=== PATIENT | male | born 1935 | race Caucasian/White ===

== ENCOUNTER → 2017-03-13 | Outpatient (CLI) | payer MEDICARE, BC ==
[~2017-03-13] MED LIST: ACTOS30 MG PO; ALLOPURINOL300 MG PO; B-121000 MCG PO; CEPHALEXIN500 M1 PO; DIOVAN HCT PO; DIOVAN/HCT 12.51 TAB PO; FLOMAX 0.40.4 MG/CAP PO; GLUCOTROL 5M5 MG/TAB PO; GLYBURIDE MICRON3 MG PO; HUMALOG100 U/ML SC; LEVEMIR FLEX100 U/ML SQ; NORCO 325 MG-51 TAB PO; NOVOLOGMIX70/30 SQ; TRICOR 48MG48 MG PO; UROCIT; UROCIT-K 5540 MG/TAB PO; ZAROXOLYN5 MG PO
== END ==
LOC: ZCOL.LAB 16:40
DX: E11.621 Type 2 diabetes mellitus with foot ulcer (principal)

== ENCOUNTER → 2017-03-18 | Outpatient (CLI) | payer MEDICARE, BC | LOC: COL.VAS 12:35 | DX: L97.219 Non-pressure chronic ulcer of right calf with unspecified severity (principal); M79.89 Other specified soft tissue disorders ==

== ENCOUNTER 2017-04-03 07:57 | Day surgery (SDC) | payer MEDICARE, BC ==
[~2017-04-03] VITALS: Ht 183 cm; Wt 135.9 kg
[2017-04-03 08:10] VITALS: BP 109/75; PULSE 88; TEMP 97.7
[2017-04-03 10:21] LABS: HEMATOCRIT 33.3 % (42.0-52.0); HEMOGLOBIN 10.7 g/dl (13.5-18.0); MEAN CELL VOLUME 105 fl (80.0-100.0); MEAN CORPUSCULAR HEMOGLOBIN 34 pg (27.0-31.0); MEAN CORPUSCULAR HGB CONC 32 g/dl (33.0-37.0); MEAN PLATELET VOLUME 9.3 fl (7.4-10.4); PLATELET COUNT 234 K/mm3 (130-400); RED BLOOD COUNT 3.17 M/mm3 (4.20-5.60); WHITE BLOOD COUNT 8.1 K/mm3 (4.8-10.8)
[2017-04-03 10:26] LABS: INR 1.4 (0.8-3.0); PROTHROMBIN TIME 16.3 SECONDS (9.7-12.8)
[2017-04-03 10:31] LABS: CREATININE, serum 3.01 mg/dL (0.66-1.25)
== END 2017-04-03 11:43 | disposition home or self-care (01) ==
LOC: COL.CAR 07:57
PROVIDERS: Radiology Diagnostic Radiology
DX: E11.621 Type 2 diabetes mellitus with foot ulcer (principal); Z53.09 Procedure and treatment not carried out because of other contraindication; L89.899 Pressure ulcer of other site, unspecified stage; I87.333 Chronic venous hypertension (idiopathic) with ulcer and inflammation of bilateral lower extremity; I25.10 Atherosclerotic heart disease of native coronary artery without angina pectoris; R79.89 Other specified abnormal findings of blood chemistry
CPT/HCPCS: J2250; J7030

== ENCOUNTER 2017-04-15 10:38 | Inpatient (IN) | payer MEDICARE, BC ==
[~2017-04-15] VITALS: Ht 182.9 cm; Wt 140.8 kg
[~2017-04-15 10:38] MED LIST changes: -ALLOPURINOL300 MG PO; +ZYLOPRIM 300MG300 MG PO
[2017-04-15 11:53] LABS: BASO % 0.3 % (0.0-2.0); EOS % 0.3 % (0-4.0); GRAN # 11.3 (1.4-6.5); LYMPH % 7.7 % (20.0-51.0); MEAN CELL VOLUME 106 fl (80.0-100.0); MEAN CORPUSCULAR HGB CONC 32 g/dl (33.0-37.0); MEAN PLATELET VOLUME 9.6 fl (7.4-10.4); MONO # 0.9 (0.1-0.6); MONO % 6.6 % (1.7-9.3); PLATELET COUNT 440 K/mm3 (130-400); RED BLOOD COUNT 2.86 M/mm3 (4.20-5.60); REDCELL DISTRIBUTION WIDTH-CV 14.8 % (11.5-14.5)
[2017-04-15 11:57] LABS: HEMATOCRIT 30.4 % (42.0-52.0); HEMOGLOBIN 9.7 g/dl (13.5-18.0); MEAN CORPUSCULAR HEMOGLOBIN 34 pg (27.0-31.0)
[2017-04-15 12:03] LABS: ALBUMIN 3.3 gm/dL (3.5-5.0); BILIRUBIN,TOTAL 0.8 mg/dL (0.0-1.0); CALCIUM 8.8 mg/dL (8.4-10.2); POTASSIUM 4.7 mmol/L (3.4-5.0); TOTAL PROTEIN 7.2 gm/dL (6.4-8.2)
[2017-04-15 12:06] LABS: CREATININE, serum 4.59 mg/dL (0.66-1.25)
[2017-04-15 12:20] LABS: C-REACTIVE PROTEIN 20.9 mg/dL (0.0-0.9)
[2017-04-15 12:25] LABS: ERYTHROCYTE SEDIMENTATION RATE > 140 mm/hr (0-30)
[2017-04-15] MEDS ORDERED: DIOVAN/HCT 12.51 TAB PO (12:31)
[2017-04-15 14:31] VITALS: BP 102/40; PULSE 89; TEMP 97.6
[2017-04-15 14:52] LABS: INR 1.5 (0.8-3.0); PROTHROMBIN TIME 17.4 SECONDS (9.7-12.8)
[2017-04-15 16:17] VITALS: BP 106/51; PULSE 81; TEMP 98.4
[2017-04-15 19:39] VITALS: BP 93/57; PULSE 93; TEMP 98.4
[2017-04-15 23:50] VITALS: BP 98/77; PULSE 97; TEMP 98
[2017-04-16] VITALS (7 sets, daily range): BP systolic 83–123; BP diastolic 30–96; PULSE 76–92; TEMP 97.4–98.7
[2017-04-16 00:43] LABS: FOLATE (FOLIC ACID) 4.3 ng/mL (7.0-31.4)
[2017-04-16 06:07] LABS: BASO % 0.3 % (0.0-2.0); EOS % 0.2 % (0-4.0); GRAN # 8.3 (1.4-6.5); GRAN % 81.9 % (42.2-75.2); LYMPH # 0.9 (1.2-3.4); LYMPH % 9.2 % (20.0-51.0); MEAN CELL VOLUME 105 fl (80.0-100.0); MEAN CORPUSCULAR HGB CONC 31 g/dl (33.0-37.0); MEAN PLATELET VOLUME 9.8 fl (7.4-10.4); MONO # 0.7 (0.1-0.6); MONO % 7.3 % (1.7-9.3); PLATELET COUNT 343 K/mm3 (130-400); RED BLOOD COUNT 2.48 M/mm3 (4.20-5.60); REDCELL DISTRIBUTION WIDTH-CV 14.6 % (11.5-14.5)
[2017-04-16 06:10] LABS: MEAN CORPUSCULAR HEMOGLOBIN 32 pg (27.0-31.0)
[2017-04-16 06:16] LABS: POTASSIUM 4.6 mmol/L (3.4-5.0)
[2017-04-16 06:25] LABS: CREATININE, serum 4.3 mg/dL (0.66-1.25)
[2017-04-16 11:59] LABS: RETIC # 0.06 M/mm3 (0.02-0.16); RETIC % 2.6 % (0.5-3.52)
[2017-04-17] VITALS (11 sets, daily range): BP systolic 76–131; BP diastolic 41–87; PULSE 78–109; TEMP 97.4–98.8
[2017-04-17 06:00] LABS: BASO # 0.1 (0.0-0.2); BASO % 0.3 % (0.0-2.0); EOS # 0.1 (0.0-0.7); EOS % 0.5 % (0-4.0); GRAN # 11.3 (1.4-6.5); LYMPH # 2.3 (1.2-3.4); LYMPH % 15.5 % (20.0-51.0); MEAN CELL VOLUME 107 fl (80.0-100.0); MEAN CORPUSCULAR HGB CONC 31 g/dl (33.0-37.0); MEAN PLATELET VOLUME 9.8 fl (7.4-10.4); MONO # 0.9 (0.1-0.6); MONO % 6.3 % (1.7-9.3); RED BLOOD COUNT 2.69 M/mm3 (4.20-5.60)
[2017-04-17 06:00] LABS: COLLECTION METHOD CLEAN CATCH
[2017-04-17 06:15] LABS: CALCIUM 7.9 mg/dL (8.4-10.2); MAGNESIUM 2.4 mg/dL (1.6-2.3); POTASSIUM 4.5 mmol/L (3.4-5.0)
[2017-04-17 06:17] LABS: URINE PROTEIN:CREAT RATIO 0.25 (0.00-0.14)
[2017-04-17 06:18] LABS: HEMATOCRIT 28.7 % (42.0-52.0); HEMOGLOBIN 8.8 g/dl (13.5-18.0); MEAN CORPUSCULAR HEMOGLOBIN 33 pg (27.0-31.0); PLATELET COUNT 449 K/mm3 (130-400)
[2017-04-17 06:19] LABS: BUDDING YEAST Present /hpf; PH 5 (5-8); URINE APPEARANCE Clear; URINE BACTERIA Rare /hpf; URINE BILIRUBIN Negative (NEGATIVE); URINE BLOOD 2+ (NEGATIVE); URINE COLOR Yellow; URINE GLUCOSE 1+ (NEGATIVE); URINE KETONE Negative (NEGATIVE); URINE LEUKOCYTE ESTERASE Negative (NEGATIVE); URINE NITRATE Negative (NEGATIVE); URINE PROTEIN(semi-quant) 1+ (NEGATIVE); URINE RBC 0-2 /hpf; URINE UROBILINOGEN Negative (NEGATIVE)
[2017-04-17 06:20] LABS: CREATININE, serum 4.58 mg/dL (0.66-1.25)
[2017-04-17 06:23] LABS: CREATININE, serum 4.65 mg/dL (0.66-1.25)
[2017-04-17 06:35] LABS: FRACTIONAL EXCRETION OF NA+ 0.7 %
[2017-04-17 06:43] LABS: THYROID STIMULATING HORMONE 4.65 uIU/mL (0.465-4.680)
[2017-04-18 03:36] VITALS: BP 131/98; PULSE 82; TEMP 98.4
[2017-04-18 07:19] LABS: MEAN CELL VOLUME 109 fl (80.0-100.0); MEAN CORPUSCULAR HGB CONC 31 g/dl (33.0-37.0); MEAN PLATELET VOLUME 10.1 fl (7.4-10.4); RED BLOOD COUNT 2.14 M/mm3 (4.20-5.60); REDCELL DISTRIBUTION WIDTH-CV 14.9 % (11.5-14.5)
[2017-04-18 07:21] LABS: HEMATOCRIT 23.3 % (42.0-52.0); HEMOGLOBIN 7.1 g/dl (13.5-18.0); MEAN CORPUSCULAR HEMOGLOBIN 33 pg (27.0-31.0)
[2017-04-18 07:22] LABS: PLATELET COUNT 327 K/mm3 (130-400)
[2017-04-18 07:24] LABS: CALCIUM 7.3 mg/dL (8.4-10.2); POTASSIUM 4.7 mmol/L (3.4-5.0)
[2017-04-18 07:28] LABS: CREATININE, serum 4.38 mg/dL (0.66-1.25)
[2017-04-18 08:03] LABS: BAND 4 % (0-10); BASOPHIL 1 % (0-2); EOSINOPHIL 1 % (0-4); LYMPHOCYTE 13 % (20.0-51.0); MYELOCYTE 2 % (0-0); NEUTROPHILS 79 % (42.0-75.2); PLATELET ESTIMATE NORMAL (NORMAL)
[2017-04-18 08:09] VITALS: BP 97/62; PULSE 85; TEMP 98.4
[2017-04-18 12:14] VITALS: BP 108/46; PULSE 90; TEMP 98
[2017-04-18 15:35] VITALS: BP 84/49; PULSE 87; TEMP 97.9
[2017-04-18 20:30] VITALS: BP 89/57; PULSE 69; TEMP 98.1
[2017-04-19] VITALS (10 sets, daily range): BP systolic 94–134; BP diastolic 40–65; PULSE 65–86; TEMP 97.4–98.4
[2017-04-19 07:14] LABS: MEAN CELL VOLUME 108 fl (80.0-100.0); MEAN CORPUSCULAR HGB CONC 31 g/dl (33.0-37.0); MEAN PLATELET VOLUME 9.9 fl (7.4-10.4); PLATELET COUNT 326 K/mm3 (130-400); RED BLOOD COUNT 2.07 M/mm3 (4.20-5.60); REDCELL DISTRIBUTION WIDTH-CV 14.9 % (11.5-14.5)
[2017-04-19 07:20] LABS: HEMATOCRIT 22.3 % (42.0-52.0); HEMOGLOBIN 6.8 g/dl (13.5-18.0); MEAN CORPUSCULAR HEMOGLOBIN 33 pg (27.0-31.0)
[2017-04-19 07:30] LABS: CALCIUM 7.5 mg/dL (8.4-10.2); CREATININE, serum 3.88 mg/dL (0.66-1.25); POTASSIUM 4.7 mmol/L (3.4-5.0)
[2017-04-19 09:30] LABS: LYMPHOCYTE 18 % (20.0-51.0); NEUTROPHILS 78 % (42.0-75.2); PLATELET ESTIMATE NORMAL (NORMAL)
[2017-04-19 09:32] LABS: ANISOCYTOSIS 1+; HYPOCHROMIA 2+
[2017-04-20 03:59] VITALS: BP 107/63; PULSE 64; TEMP 97.9
[2017-04-20 06:48] LABS: MEAN CELL VOLUME 106 fl (80.0-100.0); MEAN CORPUSCULAR HGB CONC 31 g/dl (33.0-37.0); MEAN PLATELET VOLUME 9.8 fl (7.4-10.4); PLATELET COUNT 326 K/mm3 (130-400); RED BLOOD COUNT 2.34 M/mm3 (4.20-5.60); REDCELL DISTRIBUTION WIDTH-CV 15.8 % (11.5-14.5)
[2017-04-20 07:01] LABS: CALCIUM 7.8 mg/dL (8.4-10.2); CREATININE, serum 3.51 mg/dL (0.66-1.25); POTASSIUM 4.8 mmol/L (3.4-5.0)
[2017-04-20 07:02] LABS: HEMATOCRIT 24.9 % (42.0-52.0); HEMOGLOBIN 7.6 g/dl (13.5-18.0); MEAN CORPUSCULAR HEMOGLOBIN 32 pg (27.0-31.0)
[2017-04-20 07:36] VITALS: BP 109/62; PULSE 78; TEMP 97.4
[2017-04-20 08:33] LABS: BAND 53 % (0-10); LYMPHOCYTE 20 % (20.0-51.0); NEUTROPHILS 27 % (42.0-75.2); NUCLEATED RED BLOOD CELL 1 (0-6); PLATELET ESTIMATE INCREASED (NORMAL)
[2017-04-20 11:53] VITALS: BP 104/76; PULSE 80; TEMP 97.6
[2017-04-20] MEDS ORDERED: AMOXICILLIN/CLA1 TA1 PO (12:57)
[2017-04-20] MEDS ORDERED: NORCO 325 MG-7.1 TAB PO (12:58)
[2017-04-20] MEDS ORDERED: FOLIC ACID 11 MG/TA1 PO (12:59)
[2017-04-20 13:10] VITALS: BP 104/76; PULSE 80; TEMP 97.6
[2017-04-20] MEDS ORDERED: HEPARIN SOD5000 U/ML SQ (13:50)
[2017-04-20] MEDS ORDERED: NOVOLOG 100U100 U/M1 SQ (13:53)
[2017-04-20] MEDS ORDERED: LEXAPRO 10MG10 MG PO (13:54)
== END 2017-04-20 14:26 | DRG 617 ==
LOC: COL.ER 10:38 → MEDICAL 11:54
PROVIDERS: Emergency Medicine; Internal Medicine Nephrology; Nurse Practitioner Family; Orthopaedic Surgery; Physician Assistant
PROC: 0Y6M0ZB Detachment at Right Foot, Partial 2nd Ray, Open Approach (ICD-10-PCS; 2017-04-17)
PROC: 0Y6M0ZC Detachment at Right Foot, Partial 3rd Ray, Open Approach (ICD-10-PCS; 2017-04-17)
PROC: 0Y6M0ZD Detachment at Right Foot, Partial 4th Ray, Open Approach (ICD-10-PCS; 2017-04-17)
PROC: 0Y6M0ZF Detachment at Right Foot, Partial 5th Ray, Open Approach (ICD-10-PCS; 2017-04-17)
PROC: 0Y6M0Z9 Detachment at Right Foot, Partial 1st Ray, Open Approach (ICD-10-PCS; principal; 2017-04-17 14:45)
DX: E11.69 Type 2 diabetes mellitus with other specified complication (principal); M86.8X7 Other osteomyelitis, ankle and foot; I13.0 Hypertensive heart and chronic kidney disease with heart failure and stage 1 through stage 4 chronic kidney disease, or unspecified chronic kidney disease; I50.30 Unspecified diastolic (congestive) heart failure; E87.2 Acidosis; N18.4 Chronic kidney disease, stage 4 (severe); N17.9 Acute kidney failure, unspecified; E11.22 Type 2 diabetes mellitus with diabetic chronic kidney disease; E11.649 Type 2 diabetes mellitus with hypoglycemia without coma; D53.9 Nutritional anemia, unspecified; M10.9 Gout, unspecified; E78.1 Pure hyperglyceridemia; F32.9 Major depressive disorder, single episode, unspecified; R19.7 Diarrhea, unspecified; N17.0 Acute kidney failure with tubular necrosis; Z87.442 Personal history of urinary calculi; Z79.4 Long term (current) use of insulin
CPT/HCPCS: 99223-AI; 99232-AI; 99233-AI; 99239; C1751; J0881; J1644; J1815; J1940; J2060; J2250; J2405; J2543; J2704; J2916; J3010; J3370; J7030; J7040; J7050; P9016

== ENCOUNTER 2017-04-19 16:37 | Inpatient (IN) | payer MEDICARE, BC ==
[~2017-04-19] VITALS: Ht 182.9 cm; Wt 133.9 kg
[2017-04-20] MEDS ORDERED: AMOXICILLIN/CLA1 TA1 PO (12:57)
[2017-04-20] MEDS ORDERED: NORCO 325 MG-7.1 TAB PO (12:58)
[2017-04-20] MEDS ORDERED: FOLIC ACID 11 MG/TA1 PO (12:59)
[2017-04-20] MEDS ORDERED: HEPARIN SOD5000 U/ML SQ (13:50)
[2017-04-20] MEDS ORDERED: NOVOLOG 100U100 U/M1 SQ (13:53)
[2017-04-20] MEDS ORDERED: LEXAPRO 10MG10 MG PO (13:54)
[2017-04-20 15:44] VITALS: BP 112/54; PULSE 83; TEMP 97.7
[2017-04-20 16:00] VITALS: BP 112/54; PULSE 83; TEMP 97.7
[2017-04-21 05:50] VITALS: BP 120/55; PULSE 77; TEMP 97.9
[2017-04-21 17:33] VITALS: BP 118/55; PULSE 68; TEMP 98.3
[2017-04-22 05:48] VITALS: BP 115/51; PULSE 81; TEMP 97.2
[2017-04-22 10:29] LABS: MEAN CELL VOLUME 106 fl (80.0-100.0); MEAN CORPUSCULAR HGB CONC 31 g/dl (33.0-37.0); MEAN PLATELET VOLUME 9.1 fl (7.4-10.4); PLATELET COUNT 416 K/mm3 (130-400); REDCELL DISTRIBUTION WIDTH-CV 15.8 % (11.5-14.5)
[2017-04-22 10:37] LABS: HEMATOCRIT 29.6 % (42.0-52.0); HEMOGLOBIN 9.2 g/dl (13.5-18.0); MEAN CORPUSCULAR HEMOGLOBIN 33 pg (27.0-31.0)
[2017-04-22 10:39] LABS: CREATININE, serum 2.73 mg/dL (0.66-1.25); POTASSIUM 4.8 mmol/L (3.4-5.0)
[2017-04-22 11:27] LABS: BAND 21 % (0-10); BASOPHIL 1 % (0-2); LYMPHOCYTE 24 % (20.0-51.0); NEUTROPHILS 47 % (42.0-75.2); NUCLEATED RED BLOOD CELL 7 (0-6); PLATELET ESTIMATE INCREASED (NORMAL)
[2017-04-22 15:14] VITALS: BP 129/62; PULSE 60; TEMP 97.6
[2017-04-23 07:00] VITALS: BP 126/45; PULSE 86; TEMP 97.6
[2017-04-23 16:21] VITALS: BP 117/53; PULSE 87; TEMP 98.3
[2017-04-24 05:09] VITALS: BP 119/49; PULSE 84; TEMP 98.4
[2017-04-24 18:00] VITALS: BP 124/49; PULSE 89; TEMP 97.8
[2017-04-25 04:42] VITALS: BP 127/68; PULSE 78; TEMP 98
[2017-04-25 07:32] LABS: MEAN CELL VOLUME 109 fl (80.0-100.0); MEAN CORPUSCULAR HGB CONC 31 g/dl (33.0-37.0); MEAN PLATELET VOLUME 9.8 fl (7.4-10.4); RED BLOOD COUNT 2.46 M/mm3 (4.20-5.60); REDCELL DISTRIBUTION WIDTH-CV 17.2 % (11.5-14.5)
[2017-04-25 07:43] LABS: HEMATOCRIT 26.8 % (42.0-52.0); HEMOGLOBIN 8.2 g/dl (13.5-18.0); MEAN CORPUSCULAR HEMOGLOBIN 33 pg (27.0-31.0); PLATELET COUNT 315 K/mm3 (130-400)
[2017-04-25 07:59] LABS: CALCIUM 9.1 mg/dL (8.4-10.2); CREATININE, serum 2.35 mg/dL (0.66-1.25); POTASSIUM 4.6 mmol/L (3.4-5.0)
[2017-04-25 08:53] LABS: BAND 2 % (0-10); EOSINOPHIL 4 % (0-4); LYMPHOCYTE 25 % (20.0-51.0); METAMYELOCYTE 1 % (0-0); MYELOCYTE 1 % (0-0); NEUTROPHILS 64 % (42.0-75.2); NUCLEATED RED BLOOD CELL 1 (0-6)
[2017-04-25 08:54] LABS: ANISOCYTOSIS 1+; PLATELET ESTIMATE NORMAL (NORMAL)
[2017-04-25 15:26] VITALS: BP 117/81; PULSE 85; TEMP 98.1
[2017-04-26 05:49] VITALS: BP 116/87; PULSE 70; TEMP 98.5
[2017-04-26 17:30] VITALS: BP 114/50; PULSE 84; TEMP 98.5
[2017-04-26 17:36] VITALS: PULSE 58
[2017-04-27 06:25] VITALS: BP 104/41; PULSE 64; TEMP 97.4
[2017-04-27 16:47] VITALS: BP 120/59; PULSE 76; TEMP 97.5
[2017-04-28 06:19] VITALS: BP 92/35; PULSE 75; TEMP 97.5
[2017-04-28 17:16] VITALS: BP 108/62; PULSE 74; TEMP 98.8
[2017-04-29 06:21] VITALS: BP 100/36; PULSE 64; TEMP 97.8
[2017-04-29 09:48] LABS: HEMATOCRIT 30.4 % (42.0-52.0); HEMOGLOBIN 9.3 g/dl (13.5-18.0)
[2017-04-29 09:57] LABS: CALCIUM 9.3 mg/dL (8.4-10.2); CREATININE, serum 2.42 mg/dL (0.66-1.25); MAGNESIUM 1.6 mg/dL (1.6-2.3); POTASSIUM 4.2 mmol/L (3.4-5.0)
[2017-04-29 15:07] VITALS: BP 118/48; PULSE 60; TEMP 99
[2017-04-30 06:49] VITALS: BP 116/46; PULSE 62; TEMP 97.3
[2017-04-30 13:54] LABS: FOLATE (FOLIC ACID) 9.8 ng/mL (7.0-31.4)
[2017-04-30 19:21] VITALS: BP 122/57; PULSE 79; TEMP 98.2
[2017-05-01 05:00] VITALS: BP 120/59; PULSE 79; TEMP 97.4
[2017-05-01 16:28] VITALS: BP 121/57; PULSE 57; TEMP 98.6
[2017-05-02 05:47] VITALS: BP 141/59; PULSE 77; TEMP 98.2
[2017-05-02 16:26] VITALS: BP 119/61; PULSE 111; TEMP 98.5
[2017-05-03 05:30] VITALS: BP 102/50; PULSE 77; TEMP 98.4
[2017-05-03] MEDS ORDERED: BUMEX 1MG TA1 MG/TA1 PO (10:19)
[2017-05-03] MEDS ORDERED: ZYLOPRIM 100MG100 MG PO (10:19)
[2017-05-03] MEDS ORDERED: TYLENOL 325MG325 MG PO (10:19)
[2017-05-03] MEDS ORDERED: MELAT3MGTAB PO (10:20)
[2017-05-03] MEDS ORDERED: AMOXICILLIN 8751 TAB PO (17:43)
[2017-05-03] MEDS ORDERED: AMOXICILLIN/CLA1 TA1 PO (17:46)
== END 2017-05-03 14:20 | disposition home health service (06) | DRG 559 ==
PROVIDERS: Internal Medicine
DX: Z47.81 Encounter for orthopedic aftercare following surgical amputation (principal); N17.0 Acute kidney failure with tubular necrosis; M86.671 Other chronic osteomyelitis, right ankle and foot; E87.2 Acidosis; N18.4 Chronic kidney disease, stage 4 (severe); I50.32 Chronic diastolic (congestive) heart failure; I13.0 Hypertensive heart and chronic kidney disease with heart failure and stage 1 through stage 4 chronic kidney disease, or unspecified chronic kidney disease; E11.649 Type 2 diabetes mellitus with hypoglycemia without coma; E11.22 Type 2 diabetes mellitus with diabetic chronic kidney disease; D64.9 Anemia, unspecified; B96.4 Proteus (mirabilis) (morganii) as the cause of diseases classified elsewhere; B96.89 Other specified bacterial agents as the cause of diseases classified elsewhere; N20.0 Calculus of kidney
CPT/HCPCS: 99222-AI; 99232-AI; 99239; A9284; J1644; J1815

== ENCOUNTER 2019-04-14 23:00 | Inpatient (IN) | payer MEDICARE, BC ==
[~2019-04-14] VITALS: Ht 182.9 cm; Wt 128.7 kg
[~2019-04-14 23:00] MED LIST changes: +AMOXICILLIN 8751 TAB PO; +AMOXICILLIN/CLA1 TA1 PO; +BUMEX 1MG TA1 MG/TA1 PO; +FOLIC ACID 11 MG/TA1 PO; +HEPARIN SOD5000 U/ML SQ; +LEXAPRO 10MG10 MG PO; +MELAT3MGTAB PO; +NORCO 325 MG-7.1 TAB PO; +NOVOLOG 100U100 U/M1 SQ; +TYLENOL 325MG325 MG PO; +ZYLOPRIM 100MG100 MG PO
[2019-04-15] VITALS (11 sets, daily range): BP systolic 107–133; BP diastolic 53–70; PULSE 59–99; TEMP 97.6–98.8
[2019-04-15 00:05] LABS: COLLECTION METHOD CLEAN CATCH
[2019-04-15 00:08] LABS: BASO % 0.2 % (0.0-2.0); GRAN # 17.2 (1.4-6.5); GRAN % 89.8 % (42.2-75.2); HEMATOCRIT 41.7 % (42.0-52.0); HEMOGLOBIN 13.9 g/dl (13.5-18.0); LYMPH # 0.6 (1.2-3.4); LYMPH % 3.3 % (20.0-51.0); MEAN CELL VOLUME 99 fl (80.0-100.0); MEAN CORPUSCULAR HEMOGLOBIN 33 pg (27.0-31.0); MEAN CORPUSCULAR HGB CONC 33 g/dl (33.0-37.0); MEAN PLATELET VOLUME 10.6 fl (7.4-10.4); MONO # 1.1 (0.1-0.6); MONO % 5.9 % (1.7-9.3); PLATELET COUNT 295 K/mm3 (130-400); RED BLOOD COUNT 4.21 M/mm3 (4.20-5.60); REDCELL DISTRIBUTION WIDTH-CV 14.6 % (11.5-14.5)
[2019-04-15 00:13] LABS: INR 1.2 (0.8-3.0); PROTHROMBIN TIME 13.8 SECONDS (9.7-12.8)
[2019-04-15 00:17] LABS: MUCOUS Present /lpf; PH 5 (5-8); URINE APPEARANCE Clear; URINE BACTERIA None Seen /hpf; URINE BILIRUBIN Negative (NEGATIVE); URINE BLOOD 1+ (NEGATIVE); URINE COLOR Yellow; URINE GLUCOSE 3+ (NEGATIVE); URINE KETONE Negative (NEGATIVE); URINE LEUKOCYTE ESTERASE Negative (NEGATIVE); URINE NITRATE Negative (NEGATIVE); URINE PROTEIN(semi-quant) 2+ (NEGATIVE); URINE RBC 0-2 /hpf; URINE UROBILINOGEN Negative (NEGATIVE)
[2019-04-15 00:19] LABS: ALBUMIN 4.1 gm/dL (3.5-5.0); BILIRUBIN,TOTAL 2.3 mg/dL (0.0-1.0); CALCIUM 10.3 mg/dL (8.4-10.2); CREATININE, serum 2.65 (0.66-1.25); POTASSIUM 4.8 mmol/L (3.4-5.0); TOTAL PROTEIN 7.7 gm/dL (6.4-8.2)
[2019-04-15 00:30] LABS: TROPONIN-I 0.015 ng/mL (0.000-0.035)
--- NOTE | 2019-04-15 02:35 | NUR ---
Patient brought to room via ER cart with ER staff. Ambulates from cart to bed with assist of one. Assisted patient into restroom. Voids clear yellow urine. Assisted patient into bed. Having pain in right upper abd that gets worse with movement or coughing. When at rest patient rates pain a 1/10 and describes as an ache, when doing activity or coughing he rates pain 8/10 and describes pain as sharp. Denies N/V at this time. 2+ bilat lower ext edema noted, worse on the left than the right. 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 Patient is not certain of his home medications he is on and his took his medication list home with her but he will have her bring it back in the morning. Patient has IV in right AC infusing NS at 125mL/hr. Patient denies any needs at this time.
--- NOTE | 2019-04-15 03:20 | NUR ---
Accu check 312. Contacted Dr. Lopes and updated on blood glucose level. Order received to administer Novolog 5 units SQ now and recheck blood sugar in two hours.
--- NOTE | 2019-04-15 06:07 | NUR ---
Requests pain medication for pain in right upper abd. Asked patient to rate pain, unable to rate pain at this time. Assisted the patient to the bathroom to void. Patient says that it feels like he is passing a kidney stone at this time. Will administer pain medication as prescribed at this time. Will assist patient back to bed when done in bathroom.
--- NOTE | 2019-04-15 06:18 | NUR ---
When patient was done urinating on commode in bathroom there were two dark stones noted in bucket. Strained urine and placed stones in UA cup at this time. Patient says that he still has some pain on his right side but not as bad as it was.
--- NOTE | 2019-04-15 06:32 | NUR ---
Contacted Dr. Lopes and updated that patient has passed a couple kidney stones and also on the patient recent accu check, 311. Dr. Lopes says that he will review chart, place orders, and come in to the see the patient. Patient updated on plan.
--- NOTE | 2019-04-15 07:00 | NUR ---
Report received from AARON Manzo. Pt in bed resting at side of bed, pain is 9/10 when up ambulating and uncomfortable lying down. PRN pain meds will be provided when available, will continue to monitor.
[2019-04-15 07:15] LABS: BASO # 0.1 (0.0-0.2); BASO % 0.2 % (0.0-2.0); GRAN # 19.1 (1.4-6.5); GRAN % 88.1 % (42.2-75.2); HEMATOCRIT 40.2 % (42.0-52.0); HEMOGLOBIN 13.3 g/dl (13.5-18.0); LYMPH % 4.5 % (20.0-51.0); MEAN CELL VOLUME 98 fl (80.0-100.0); MEAN CORPUSCULAR HEMOGLOBIN 32 pg (27.0-31.0); MEAN CORPUSCULAR HGB CONC 33 g/dl (33.0-37.0); MEAN PLATELET VOLUME 10.3 fl (7.4-10.4); MONO # 1.4 (0.1-0.6); MONO % 6.5 % (1.7-9.3); PLATELET COUNT 273 K/mm3 (130-400); REDCELL DISTRIBUTION WIDTH-CV 14.6 % (11.5-14.5)
[2019-04-15 07:19] LABS: INR 1.3 (0.8-3.0); PROTHROMBIN TIME 15.7 SECONDS (9.7-12.8)
[2019-04-15 07:33] LABS: ALBUMIN 3.8 gm/dL (3.5-5.0); BILIRUBIN,TOTAL 2.6 mg/dL (0.0-1.0); CALCIUM 9.7 mg/dL (8.4-10.2); CREATININE, serum 2.61 (0.66-1.25); POTASSIUM 4.6 mmol/L (3.4-5.0); TOTAL PROTEIN 7.2 gm/dL (6.4-8.2)
--- NOTE | 2019-04-15 08:00 | NUR ---
Pt has pain at 9/10 when up ambulating, tried to go to recliner but then US arrived and needed him in bed. Assisted back to bed, gait is steady but requires assistance of one. IVF to RA/C. PRN pain meds provided. Passed two kidney stones in room when voiding this am. Will continue to monitor.
--- NOTE | 2019-04-15 11:17 | NUR ---
Initial visit; Patient thanked Consulting Senior Practice Director for looking in on him and offering God's blessings.
[2019-04-15] MEDS ORDERED: GLUCOTROL10 MG PO (13:38)
[2019-04-15] MEDS ORDERED: UROCIT-K 1010 MEQ PO (13:39)
--- NOTE | 2019-04-15 14:05 | NUR ---
JIMMY met with the patient, his (Nalini, ph#[phone]), and granddaughter (Tia) to discuss discharge plan. The patient lives in [place] with his . He reports independence with ADLs and has a cane, walker, and wheelchair. The patient's PCP is Dr. Tammy Prater and he receives his medications at [facility]. He reports no difficulties obtaining his meds. The patient does not have advnaced directives in EMR, but he states that he does have them completed and that his PCP's office should have a copy. He states that his is his DPOA-HC. JIMMY attempted to contact Dr. Prater RN to request a copy. JIMMY left her a voicemail. The patient plans to return home with his upon discharge. No additional needs at this time.
--- NOTE | 2019-04-15 14:47 | NUR ---
SW received a copy of the patient's DPOA-HC and Living Will, via fax, from the patient's PCP's office. SW placed the copies in the patient's chart.
--- NOTE | 2019-04-15 18:23 | NUR ---
Pt arrived back to floor at this time via bed with OR staff. Resting in bed, VSS. Will continue to monitor and give bedside shift report to nightshift nurse who will resume care.
--- NOTE | 2019-04-15 20:33 | NUR ---
Lying in bed with eyes closed. Opens eyes when name called out. Having some pain in right upper abd and would like pain medication. Administered Percocet as prescribed at this time. Abd lap sites x5 alll with edges well approximated, no redness/discharge/edema noted. ARMAAN drain compressed with bloody drainage. Dressing to ARMAAN CDI. 2+ bilat lower ext edema noted. Patient still sleepy from procedure. Denies further needs.
--- NOTE | 2019-04-15 21:24 | NUR ---
Lying in bed with eyes closed. Respirations even and unlabored. No signs or symptoms of discomfort noted at this time.
--- NOTE | 2019-04-15 21:56 | NUR ---
Up to bedside commode with assist of two to urinate. Patient urinates without difficulty. Does not feel at this time he is passing any stones. Assisted patient back to bed with assist of two.
--- NOTE | 2019-04-15 22:17 | NUR ---
Rating pain in right upper abd 5/10, describes as spasm pain. Explains that when he is getting up or coughing the pain increases to a 9/10. Administered Dilaudid as prescribed. Patient denies further needs.
[2019-04-16] VITALS: BP 118/47; PULSE 76; TEMP 97.9
--- NOTE | 2019-04-16 02:33 | NUR ---
Rating pain 4/10 in right upper abd. Requests pain medication. Administered Percocet as prescribed. Patient up to bedside commode to void. Returns to bed. Transfers with assist of two.
--- NOTE | 2019-04-16 02:48 | NUR ---
Dressing covering ARMAAN drain saturated with serosanguinous fluid. Dressing removed and replaced with four 4x4 drain sponges, covered with an ABD, then reinforced with hypafix tape. Patient tolerates well.
--- NOTE | 2019-04-16 03:36 | NUR ---
Lying in bed with eyes closed. Respirations even and unlabored. No signs or symptoms of discomfort noted at this time.
[2019-04-16 04:00] VITALS: BP 112/49; PULSE 80; TEMP 97.9
--- NOTE | 2019-04-16 04:18 | NUR ---
Rating pain 10/10 in right upper abd. Requests pain medication. Administered Dilaudid as prescribed. Patient says that he feels like he gets spasms in the right upper abd and movement and coughing makes it worse. Patient denies further needs at this time.
--- NOTE | 2019-04-16 07:23 | NUR ---
report from Anais WALKER.
[2019-04-16 07:38] VITALS: BP 102/48; PULSE 85; TEMP 97.3
[2019-04-16 08:21] LABS: BASO % 0.2 % (0.0-2.0); EOS % 0.3 % (0-4.0); GRAN # 12.8 (1.4-6.5); LYMPH # 1.3 (1.2-3.4); LYMPH % 8.6 % (20.0-51.0); MEAN CORPUSCULAR HGB CONC 31 g/dl (33.0-37.0); MEAN PLATELET VOLUME 10.4 fl (7.4-10.4); MONO # 0.9 (0.1-0.6); MONO % 6.1 % (1.7-9.3); PLATELET COUNT 224 K/mm3 (130-400); RED BLOOD COUNT 3.47 M/mm3 (4.20-5.60); REDCELL DISTRIBUTION WIDTH-CV 14.8 % (11.5-14.5)
[2019-04-16 08:26] LABS: HEMATOCRIT 36.1 % (42.0-52.0); HEMOGLOBIN 11.2 g/dl (13.5-18.0); MEAN CELL VOLUME 104 fl (80.0-100.0); MEAN CORPUSCULAR HEMOGLOBIN 32 pg (27.0-31.0)
[2019-04-16 08:45] LABS: ALBUMIN 3.1 gm/dL (3.5-5.0); BILIRUBIN,TOTAL 1.8 mg/dL (0.0-1.0); CREATININE, serum 2.88 (0.66-1.25); POTASSIUM 4.7 mmol/L (3.4-5.0); TOTAL PROTEIN 6.4 gm/dL (6.4-8.2)
--- NOTE | 2019-04-16 10:16 | NUR ---
CARE TEAM ROUNDING ON PATIENT THIS AM. SEE MAR FOR NEW ORDERS. PT RESTING IN BED, DRAIN TO RIGHT SIDE OF ABDOMEN WITH SEROSANGEUNOUS DRAINAGE.
[2019-04-16 11:34] VITALS: BP 99/58; PULSE 77; TEMP 97.9
[2019-04-16] MEDS ORDERED: NOVOLOGMIX70/30 SQ (14:10)
[2019-04-16 16:41] VITALS: BP 107/47; PULSE 67; TEMP 97.8
[2019-04-16 20:00] VITALS: BP 106/56; PULSE 83; TEMP 98.2
--- NOTE | 2019-04-16 21:54 | NUR ---
Pt doing well. alert and oriented with VSS. 5 lap sides with garsia set. ARMAAN drain to left side of abdomen, red-tinged minimal drainage. Does c/o some pain to ARMAAN drain site. PRN pain med given. Denies other needs at this time. Call light within reach, will continue to monitor.
--- NOTE | 2019-04-16 23:57 | NUR ---
Pt requesting pain medication, rates pain 10/10. prn dilaudid given per orders. call light within reach, will continue to monitor
[2019-04-17] VITALS: BP 103/48; PULSE 80; TEMP 97.8
--- NOTE | 2019-04-17 00:36 | NUR ---
Pt BS of 258. Per Lis, treat with novolog 8units, recheck in 4 hours
--- NOTE | 2019-04-17 03:42 | NUR ---
Pt sleeping in bed. Call light within reach, will continue to monitor
[2019-04-17 04:00] VITALS: BP 101/55; PULSE 76; TEMP 97.5
[2019-04-17 07:30] LABS: BASO % 0.3 % (0.0-2.0); EOS # 0.2 (0.0-0.7); EOS % 1.6 % (0-4.0); GRAN # 8.1 (1.4-6.5); GRAN % 79.5 % (42.2-75.2); LYMPH # 1.3 (1.2-3.4); LYMPH % 12.3 % (20.0-51.0); MEAN CELL VOLUME 105 fl (80.0-100.0); MEAN CORPUSCULAR HGB CONC 31 g/dl (33.0-37.0); MEAN PLATELET VOLUME 10.8 fl (7.4-10.4); MONO # 0.6 (0.1-0.6); MONO % 5.7 % (1.7-9.3); PLATELET COUNT 192 K/mm3 (130-400); RED BLOOD COUNT 2.97 M/mm3 (4.20-5.60); REDCELL DISTRIBUTION WIDTH-CV 14.6 % (11.5-14.5)
[2019-04-17 07:38] LABS: ALBUMIN 2.8 gm/dL (3.5-5.0); BILIRUBIN,TOTAL 0.9 mg/dL (0.0-1.0); CALCIUM 7.4 mg/dL (8.4-10.2); CREATININE, serum 3.24 (0.66-1.25); POTASSIUM 3.9 mmol/L (3.4-5.0); TOTAL PROTEIN 5.9 gm/dL (6.4-8.2)
[2019-04-17 07:46] LABS: HEMATOCRIT 31.1 % (42.0-52.0); HEMOGLOBIN 9.6 g/dl (13.5-18.0); MEAN CORPUSCULAR HEMOGLOBIN 32 pg (27.0-31.0)
--- NOTE | 2019-04-17 08:00 | NUR ---
Patient in bed resting. Alert and oriented x 3. Shift assessment complete. Lap sites x 5 with edges well approximated. ARMAAN with serous fluid present. Passing gas no BM yet. Encouraged ambulation. Denies further needs at this time.
[2019-04-17 09:30] VITALS: BP 115/57; PULSE 78; TEMP 98
[2019-04-17 13:34] VITALS: BP 107/57; PULSE 75; TEMP 98.2
[2019-04-17 16:26] VITALS: BP 103/55; PULSE 72; TEMP 98.6
[2019-04-17 17:49] LABS: FOLATE (FOLIC ACID) 4.4 ng/mL (7.0-31.4)
--- NOTE | 2019-04-17 18:34 | NUR ---
Patient has done well throughout the day, encouraged ambulation. ARMAAN continues to have serous drainage present. has requested pain medication for pain , given per orders. Encouraged ambulation today. Has been up ambulating in halls with walker, steady gait. Denies further needs at this time. Will report off to web operations administrator.
[2019-04-17 19:10] VITALS: BP 110/59; PULSE 94; TEMP 98.4
--- NOTE | 2019-04-17 20:58 | NUR ---
Pt reports he had a BM this evening arond 1900.
--- NOTE | 2019-04-17 21:42 | NUR ---
Pt doing well. Resting in bed. ARMAAN drain to right side of abdomen, CD&I with serousanguinous drainage. 5 lap sites, CD&I. BS controlled at 129. Stated he had a BM around 1900 but did not save for nursing to see. Denies pain or needs at this time. Call light within reach, will continue to monitor.
--- NOTE | 2019-04-17 22:21 | NUR ---
Pt had small, soft BM. Brown in color
[2019-04-18] VITALS (7 sets, daily range): BP systolic 99–127; BP diastolic 41–61; PULSE 61–83; TEMP 97.4–98.9
[2019-04-18 04:35] LABS: COLLECTION METHOD CLEAN CATCH
[2019-04-18 04:48] LABS: AMORPHOUS CRYSTAL Present /uL; MUCOUS Present /lpf; PH 5 (5-8); SQUAMOUS EPITHELIAL 0-2 /hpf; URINE APPEARANCE Hazy; URINE BACTERIA None Seen /hpf; URINE BILIRUBIN Negative (NEGATIVE); URINE BLOOD 1+ (NEGATIVE); URINE COLOR Yellow; URINE GLUCOSE 1+ (NEGATIVE); URINE KETONE Negative (NEGATIVE); URINE LEUKOCYTE ESTERASE Negative (NEGATIVE); URINE NITRATE Negative (NEGATIVE); URINE PROTEIN(semi-quant) Negative (NEGATIVE); URINE UROBILINOGEN Negative (NEGATIVE)
[2019-04-18 05:01] LABS: URINE PROTEIN:CREAT RATIO 0.48 (0.00-0.14)
[2019-04-18 07:29] LABS: MEAN CELL VOLUME 103 fl (80.0-100.0); MEAN CORPUSCULAR HGB CONC 31 g/dl (33.0-37.0); MEAN PLATELET VOLUME 10.1 fl (7.4-10.4); PLATELET COUNT 231 K/mm3 (130-400); RED BLOOD COUNT 2.92 M/mm3 (4.20-5.60); REDCELL DISTRIBUTION WIDTH-CV 14.5 % (11.5-14.5)
[2019-04-18 07:33] LABS: HEMATOCRIT 30.1 % (42.0-52.0); HEMOGLOBIN 9.4 g/dl (13.5-18.0); MEAN CORPUSCULAR HEMOGLOBIN 32 pg (27.0-31.0)
[2019-04-18 07:37] LABS: ALBUMIN 2.8 gm/dL (3.5-5.0); BILIRUBIN,TOTAL 0.8 mg/dL (0.0-1.0); CALCIUM 7.4 mg/dL (8.4-10.2); CREATININE, serum 3.13 (0.66-1.25); TOTAL PROTEIN 5.9 gm/dL (6.4-8.2)
[2019-04-18 12:32] LABS: HYPOCHROMIA 3+; LYMPHOCYTE 12 % (20.0-51.0); NEUTROPHILS 85 % (42.0-75.2); PLATELET ESTIMATE NORMAL (NORMAL); TOXIC GRANULATION PRESENT
--- NOTE | 2019-04-18 18:34 | NUR ---
Patient has done well throughout the day. States pain is better today than yesterday. ARMAAN continues to have large amounts of serous fluid out. Patient continues to have diarrhea throughout the day, held colace and miralax this AM. Spouse states this is often a problem after taking any stool softners. Denies further needs at this time. Will report off to channel process supervisor.
--- NOTE | 2019-04-18 19:24 | NUR ---
PATIENT REPORTS LEAKING AT DRAIN SITE. DRESSING REMOVED, NEW DRAIN SPONGE AND ABD APPLIED OVER ARMAAN SITE TO RIGHT ABDOMEN. OTHER LAP SITES ARE DRY/GLUED. PATIENT HAVING LOOSE STOOLS, COLACE HELD. ARMAAN WITH 40CC OF SEROUS FLUID DRAINED AND PLACED BACK TO BULB SUCTION. SL TO RIGHT AC WITHOUT REDNESS OR SWELLING. PATIENT READY FOR BED. TAKES PERCOCET 1 TAB FOR PAIN TO ABDOMEN 5/10. REMOVED SOCKS PER HIS REQUEST, HAS 2+ PITTING EDEMA WITH REDNESS NOTED.
--- NOTE | 2019-04-19 04:00 | NUR ---
Patient denies need for pain meds at this time.
[2019-04-19 04:20] VITALS: BP 117/68; PULSE 68; TEMP 97.9
[2019-04-19 08:19] VITALS: BP 129/81; PULSE 73; TEMP 97.4
--- NOTE | 2019-04-19 09:00 | NUR ---
AT BEDSIDE. SEE ORDERS.
[2019-04-19 09:40] LABS: CALCIUM 7.5 mg/dL (8.4-10.2); CREATININE, serum 2.7 (0.66-1.25); POTASSIUM 4.3 mmol/L (3.4-5.0)
[2019-04-19 10:03] LABS: BASO % 0.4 % (0.0-2.0); EOS # 0.1 (0.0-0.7); EOS % 1.5 % (0-4.0); GRAN # 6.1 (1.4-6.5); GRAN % 77.6 % (42.2-75.2); LYMPH % 12.5 % (20.0-51.0); MEAN CELL VOLUME 102 fl (80.0-100.0); MEAN CORPUSCULAR HGB CONC 31 g/dl (33.0-37.0); MEAN PLATELET VOLUME 10.2 fl (7.4-10.4); MONO # 0.5 (0.1-0.6); PLATELET COUNT 250 K/mm3 (130-400); RED BLOOD COUNT 3.03 M/mm3 (4.20-5.60); REDCELL DISTRIBUTION WIDTH-CV 14.6 % (11.5-14.5)
[2019-04-19 10:17] LABS: HEMOGLOBIN 9.7 g/dl (13.5-18.0); MEAN CORPUSCULAR HEMOGLOBIN 32 pg (27.0-31.0)
--- NOTE | 2019-04-19 12:45 | NUR ---
PATIENT DISCHARGING HOME VIA WC TO PERSONAL VEHICLE WITH . GAVE DISCHARGE INSTRUCTIONS, PRESCRIPTIONS AND PATIENT TO MAKE F/U APT. ANSWERED ALL QUESTIONS/CONCERNS. DC'D IV, COVERED SITE WITH LEWIS & AQUILES. DC'D TELE. PATIENT DRESSED AND READY TO DISCHARGE.
== END 2019-04-19 12:30 | disposition home or self-care (01) | DRG 854 ==
LOC: COL.ER 23:00 → SURG 04-15 01:39
PROVIDERS: Emergency Medicine; Internal Medicine Nephrology; Physician Assistant; Student in an Organized Health Care Education/Training Program; Surgery; ADMIT Surgery
PROC: 8E0W4CZ Robotic Assisted Procedure of Trunk Region, Percutaneous Endoscopic Approach (ICD-10-PCS; 2019-04-15)
PROC: 0FT44ZZ Resection of Gallbladder, Percutaneous Endoscopic Approach (ICD-10-PCS; principal; 2019-04-15 14:30)
DX: A41.9 Sepsis, unspecified organism (principal); K81.0 Acute cholecystitis; N18.4 Chronic kidney disease, stage 4 (severe); N17.9 Acute kidney failure, unspecified; I12.9 Hypertensive chronic kidney disease with stage 1 through stage 4 chronic kidney disease, or unspecified chronic kidney disease; E11.22 Type 2 diabetes mellitus with diabetic chronic kidney disease; E78.5 Hyperlipidemia, unspecified; E66.9 Obesity, unspecified; N40.0 Benign prostatic hyperplasia without lower urinary tract symptoms; M10.9 Gout, unspecified; F32.9 Major depressive disorder, single episode, unspecified; D64.9 Anemia, unspecified; R65.20 Severe sepsis without septic shock; N20.0 Calculus of kidney; E11.51 Type 2 diabetes mellitus with diabetic peripheral angiopathy without gangrene; M43.17 Spondylolisthesis, lumbosacral region; Z79.4 Long term (current) use of insulin
CPT/HCPCS: 99223; 99232-AI; 99233-AI; A4216; J1170; J1650; J1815; J2405; J2543; J2704; J3010; J7030

== ENCOUNTER 2019-11-19 18:09 | Emergency (ER) | payer MEDICARE, BC ==
[~2019-11-19] VITALS: Ht 182.9 cm; Wt 123.6 kg
[~2019-11-19 18:09] MED LIST changes: +GLUCOTROL10 MG PO; +UROCIT-K 1010 MEQ PO
[2019-11-19 18:20] VITALS: TEMP 98.2
[2019-11-19 18:27] LABS: BASO % 0.4 % (0.0-2.0); EOS # 0.2 (0.0-0.7); EOS % 1.9 % (0-4.0); GRAN # 5.2 (1.4-6.5); GRAN % 67.3 % (42.2-75.2); HEMATOCRIT 39.3 % (42.0-52.0); HEMOGLOBIN 13.1 g/dl (13.5-18.0); LYMPH # 1.8 (1.2-3.4); LYMPH % 23.3 % (20.0-51.0); MEAN CELL VOLUME 98 fl (80.0-100.0); MEAN CORPUSCULAR HEMOGLOBIN 33 pg (27.0-31.0); MEAN CORPUSCULAR HGB CONC 33 g/dl (33.0-37.0); MEAN PLATELET VOLUME 10.2 fl (7.4-10.4); MONO # 0.5 (0.1-0.6); MONO % 6.3 % (1.7-9.3); PLATELET COUNT 214 K/mm3 (130-400); RED BLOOD COUNT 4.03 M/mm3 (4.20-5.60); REDCELL DISTRIBUTION WIDTH-CV 14.5 % (11.5-14.5)
[2019-11-19 18:31] LABS: INR 1.2 (0.8-3.0)
[2019-11-19 18:34] LABS: ALANINE AMINOTRANSFERASE 20 U/L (4-49); ALBUMIN 3.9 gm/dL (3.5-5.0); ALKALINE PHOSPHATASE 89 U/L (50-136); ANION GAP 9 mmol/L (7-16); AST,SGOT 25 U/L (15-37); BILIRUBIN,TOTAL 0.8 mg/dL (0.0-1.0); BLOOD UREA NITROGEN 52 mg/dL (9-20); CALCIUM 9.5 mg/dL (8.4-10.2); CARBON DIOXIDE 23 mmol/L (22-30); CHLORIDE 105 mmol/L (98-107); CREATINE KINASE 83 U/L (55-170); CREATININE, serum 2.64 (0.66-1.25); GLUCOSE 298 mg/dL (74-106); LIPASE 54 U/L (23-300); POTASSIUM 4.3 mmol/L (3.4-5.0); SODIUM 137 mmol/L (137-145); TOTAL PROTEIN 7.3 gm/dL (6.4-8.2)
[2019-11-19 19:03] LABS: TROPONIN-I < 0.012 ng/mL (0.000-0.035)
[2019-11-19 21:20] VITALS: BP 117/64; PULSE 73
== END 2019-11-19 21:20 | disposition short-term general hospital (02) ==
LOC: COL.ER 18:09
PROVIDERS: Emergency Medicine
DX: R53.1 Weakness (principal); G81.94 Hemiplegia, unspecified affecting left nondominant side; M54.2 Cervicalgia; E13.22 Other specified diabetes mellitus with diabetic chronic kidney disease; E78.5 Hyperlipidemia, unspecified; N18.4 Chronic kidney disease, stage 4 (severe); F32.9 Major depressive disorder, single episode, unspecified; E66.9 Obesity, unspecified; Z79.4 Long term (current) use of insulin; Z68.36 Body mass index [BMI] 36.0-36.9, adult; W01.198A Fall on same level from slipping, tripping and stumbling with subsequent striking against other object, initial encounter
CPT/HCPCS: J7030

== ENCOUNTER 2021-11-09 12:32 | Inpatient (IN) | payer MEDICARE, BC ==
[~2021-11-09] VITALS: Ht 182.9 cm; Wt 123.5 kg
[~2021-11-09 12:32] MED LIST changes: +B-12 500 MCG PO; -GLUCOTROL10 MG PO; +NEURONTIN100 MG/CAP PO
[2021-11-09 12:48] VITALS: BP 102/63; PULSE 72; TEMP 97.9
--- NOTE | 2021-11-09 14:00 | NUR ---
PATIENT ARRIVED TO UNIT IN STABLE CONDITION. ASSESSMENTS COMPLETED. WITH PATIENT. BEDROS TO SEE PATIENT LATER IN THE AFTERNOON. PATIENT IS A&O X4, PLEASANT. PATIENT IS UNABLE TO COMPLETE ANY ADLS ON HIS OWN. IS ABLE TO FEED SELF WITH SET UP ASSIST. LAIRD CATHETER IN PLACE. INCONTINENT OF BOWEL. SEVERE SWELLING NOTED TO BILATERAL LOWER EXT. WITH ULCERATIONS, CRUSTING AND WEEPING OF FLUIDS. MULTIPLE WOUNDS ON PATIENT BODY, SCROTUM, SACCRUM, BILATERAL FEET AND LEGS. TAKES MEDS WHOLE. SHAWANDA LIFT WILL BE NEEDED FOR TRANSFERS. PATIENT IS AT RISK FOR FURTHER WOUND FORMATION AND NEEDS MAX ASSIST TO TURN IN BED. VITALS WNL
[2021-11-09 16:18] LABS: COLLECTION METHOD IN
[2021-11-09 16:29] LABS: BUDDING YEAST Present (NOT PRESENT); MUCOUS Present (NOT PRESENT); PH 5 (5-8); SQUAMOUS EPITHELIAL 0-2 /hpf (0-10); URINE APPEARANCE Hazy (CLEAR/HAZY); URINE BACTERIA Rare /hpf (NONE SEEN); URINE BLOOD 2+ (NEGATIVE); URINE COLOR Yellow (YELLOW); URINE GLUCOSE Negative (NEGATIVE); URINE KETONE Negative (NEGATIVE); URINE NITRATE Negative (NEGATIVE); URINE PROTEIN(semi-quant) 1+ (NEGATIVE)
[2021-11-09 19:50] VITALS: BP 97/63; PULSE 79; TEMP 97.6
[2021-11-09] MEDS ORDERED: ZYLOPRIM 300MG300 MG PO (21:32)
[2021-11-09] MEDS ORDERED: PACERONE200 MG PO (21:35)
[2021-11-09] MEDS ORDERED: VITAMIN D31000 IU PO (21:35)
[2021-11-09] MEDS ORDERED: ELIQUIS 2.5 PO (21:36)
[2021-11-09] MEDS ORDERED: SEMGLEE (Y100 UNIT/2 SQ (21:39)
[2021-11-09] MEDS ORDERED: PROTONIX 40MG T40 MG PO (21:40)
[2021-11-09] MEDS ORDERED: INSULIN HUMA100 U/ML SQ (21:41)
[2021-11-09] MEDS ORDERED: MIRALAX PA17 GM/Dose PO (21:44)
[2021-11-09] MEDS ORDERED: MILK OF MA400 MG/52 (21:46)
[2021-11-09] MEDS ORDERED: DULCOLAX TAB5 MG PO (21:47)
[2021-11-09] MEDS ORDERED: PROAMATINE 5MG T5 MG PO (21:49)
[2021-11-09] MEDS ORDERED: AMBIEN 5MG TABLE5 MG PO (21:49)
[2021-11-09] MEDS ORDERED: KAYEXALATE15 GM/60 M PO (21:50)
[2021-11-10 00:50] VITALS: BP 110/61; PULSE 88; TEMP 98.8
--- NOTE | 2021-11-10 03:01 | NUR ---
Pt alert and oriented, resting, follows commands. Pt denies pain at this time. Weakness noted in the extremities. Pt drowsy this evening. Bumex gtt started and running at 5 ml/hr per orders. Pt NPO since 0000. I completed the med rx after speaking with Dr. Moon. Med rx was not completed by day shift. Shift assessment performed. Medications administered per orders and education provided. Liang catheter in place with adequate yellow urine output. VS stable. Pt afebrile. On room air. Pt has some significant skin issues. 3+ BLE edema noted with weeping/redness/scaling. Wounds noted on both lower extremities. There is a black unstageable wound on the pt's left heel. It is black/soft/tennis ball sized. Pt's feets are elevated and placed in pressure boots. Pt also has redness in the scrotal area. Providing frequent incontinent care and turning pt every 2 hours. Pt does not report any questions at this time, will continue to monitor.
[2021-11-10 03:25] VITALS: BP 111/62; PULSE 92; TEMP 98
--- NOTE | 2021-11-10 06:01 | NUR ---
No adverse events overnight. Pt drowsy, but alert to speech and oriented. Bumex gtt continuing at 5ml/hr. NPO enforced. 3+ edema and weeping present in BLE and bilateral feet with wounds. Unstageable ulcer on left heel. Heels elevated and placed in the boots. Scrotum reddened. Liang catheter had 400 ml out overnight. VS stable. Afebrile. Pt resting and does not report any questions at this time, will continue to monitor.
[2021-11-10 07:14] LABS: INR 1.8 (0.8-3.0)
[2021-11-10 07:15] LABS: ALBUMIN 2.6 gm/dL (3.4-4.8); C-REACTIVE PROTEIN 11.46 mg/dL (0.00-0.50); CALCIUM 8.3 mg/dL (8.4-10.2); CREATININE, serum 5.93 mg/dL (0.72-1.25); PHOSPHOROUS 7.5 mg/dL (2.3-4.7); POTASSIUM 4.8 mmol/L (3.5-4.5)
[2021-11-10 07:30] LABS: TSH w REFLEX 5.152 uIU/mL (0.350-4.940)
[2021-11-10 07:39] LABS: BASO % 0.5 % (0.0-2.0); EOS % 0.3 % (0.0-4.0); GRAN # 6.9 K/mm3 (1.4-6.5); GRAN % 78.8 % (42.2-75.2); LYMPH # 0.9 K/mm3 (1.2-3.4); LYMPH % 9.9 % (20.0-51.0); MEAN CELL VOLUME 100 fl (80.0-100.0); MEAN CORPUSCULAR HGB CONC 32 g/dl (33.0-37.0); MEAN PLATELET VOLUME 9.6 fl (7.4-10.4); MONO # 0.8 K/mm3 (0.1-0.6); MONO % 9.2 % (1.7-9.3); PLATELET COUNT 418 K/mm3 (130-400); RED BLOOD COUNT 2.72 M/mm3 (4.20-5.60); REDCELL DISTRIBUTION WIDTH-CV 17.5 % (11.5-14.5)
[2021-11-10 07:41] LABS: HEMATOCRIT 27.2 % (42.0-52.0); HEMOGLOBIN 8.6 g/dl (13.5-18.0); MEAN CORPUSCULAR HEMOGLOBIN 32 pg (27-31)
[2021-11-10 08:10] VITALS: BP 108/67; PULSE 104; TEMP 97.6
--- NOTE | 2021-11-10 09:43 | NUR ---
Initial visit; Patient states he is alright though appears depressed, not wanting to talk. Film Process Operator offered God's blessings and will keep Brooks in her prayers.
--- NOTE | 2021-11-10 12:39 | NUR ---
forestry worker met with patient to complete intake and discuss discharge plan. Patient sleeping upon entry of room. Nalini ([phone]) present at bedside. 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 Since that time, the patient has been wheelchair bound and gets help with his ADL's from his . Patient has no home oxygen needs. PCP is and they utilizes [facility] in [place] for prescriptions. Patient does have a DPOA-HC established listing Nalini as his agent and a copy can be found in his EMR. Spoke with Nalini about the need for post acute rehab and her preference for facilities are: 1.) [facility] and 2.)[facility]. Patients clinical information faxed to both facilities. Discharge plan: [facility]
[2021-11-10 12:48] VITALS: BP 113/73; PULSE 68; TEMP 97.9
--- NOTE | 2021-11-10 13:30 | NUR ---
PATIENT LEFT UNIT AT THIS TIME WITH TUBE FILLER FOR PROCEDURE. STABLE CONDITION
--- NOTE | 2021-11-10 13:44 | NUR ---
See merge for all medication, assessment, intervention, and vital sign times.
--- NOTE | 2021-11-10 15:46 | NUR ---
[facility] in interested in following the patient. They're acceptance will depend on if there is a bed available at the time of discharge.
[2021-11-10 16:48] VITALS: BP 111/68; PULSE 72; TEMP 97.9
[2021-11-10 18:26] LABS: TRANSFERRIN 238 mg/dL (163-344)
[2021-11-10 20:21] VITALS: BP 90/54; PULSE 77; TEMP 98.6
[2021-11-10 22:47] LABS: HEPATITIS B SURFACE ANTIGEN Negative (Negative); HEPATITIS C VIRUS ANTIBODY Negative (Negative)
[2021-11-11] VITALS: BP 130/61; BP 1430/61; PULSE 90; TEMP 98.5
--- NOTE | 2021-11-11 01:46 | NUR ---
Pt alert and oriented, resting quietly, follows commands. Reports soreness at hemodialysis catheter site. Site dressing is clean/dry/intact. One small round spot of red drainage noticed on gauze, but no saturation noted. Site is soft with no edema/redness/drainage. Wet to dry dressing applied to the left heel unstageable ulcer site per ortho verbal orders yesterday morning. Covered with a non-adherent on top with a kerlex dressing wrapped around. Both heels are elevated and placed in boots to decrease pressure. Bumex gtt continuing at 5 ml/hr. Liang catheter in place. Urine is yellow with sedement. Continuing to monitor intake and output. Pt tolerating PO. Dialysis diet enforced. Pt had one small brown BM this evening. Shift assessment performed. Medications administered per orders and education provided. VS stable. Afebrile. On room air. BLE and bilateral feet continue to have 3+ edema and weeping. Noted an unstageable ulcer on the left heel that is soft and black. Noted another wound on top of the pt's right foot and on the right sage. There is also an unstageable ulcer on the pt's right buttock area. Mepelex applied to the buttock area. Frequent incontinence care applied. Turning pt frequently. Continuing to elevate BLE. Pt is missing all toes on the right foot. Pt resting and denies pain at this time, will continue to monitor.
[2021-11-11 04:51] VITALS: BP 103/64; PULSE 100; TEMP 98.2
--- NOTE | 2021-11-11 05:56 | NUR ---
No adverse events overnight. Pt alert and oriented. Repositioned pt frequently. Provided incontinent care. Approximately 600 ml of yellow urine emptied from rhoades catheter overnight. Pt tolerating PO. Maintaining renal dialysis diet. Bumex gtt continuing at 5ml/hr. HD catheter site dressing clean/dry/intact. One small dot of red drainage noted on dressing, no saturation. HD site is soft. No edema/redness/warmth. Pt denies pain, just reports soreness at HD catheter site. VS stable. BLE and feet remain elevated. Wet to dry dressing applied to left heel site. Pt does not report any questions at this time, will continue to monitor.
[2021-11-11 07:58] LABS: ALBUMIN 2.6 gm/dL (3.4-4.8); CALCIUM 8.4 mg/dL (8.4-10.2); CREATININE, serum 5.86 mg/dL (0.72-1.25); PHOSPHOROUS 7.5 mg/dL (2.3-4.7); POTASSIUM 4.6 mmol/L (3.5-4.5)
[2021-11-11 08:00] VITALS: BP 109/63; PULSE 78; TEMP 97.3
[2021-11-11 08:05] LABS: BASO % 0.3 % (0.0-2.0); EOS % 0.4 % (0.0-4.0); GRAN # 6.6 K/mm3 (1.4-6.5); GRAN % 82.8 % (42.2-75.2); LYMPH # 0.5 K/mm3 (1.2-3.4); LYMPH % 6.8 % (20.0-51.0); MEAN CELL VOLUME 100 fl (80.0-100.0); MEAN CORPUSCULAR HGB CONC 32 g/dl (33.0-37.0); MEAN PLATELET VOLUME 9.5 fl (7.4-10.4); MONO # 0.7 K/mm3 (0.1-0.6); MONO % 8.8 % (1.7-9.3); PLATELET COUNT 435 K/mm3 (130-400); REDCELL DISTRIBUTION WIDTH-CV 17.9 % (11.5-14.5)
[2021-11-11 08:12] LABS: HEMATOCRIT 27.3 % (42.0-52.0); HEMOGLOBIN 8.6 g/dl (13.5-18.0); MEAN CORPUSCULAR HEMOGLOBIN 32 pg (27-31)
[2021-11-11 08:15] LABS: RED BLOOD COUNT 2.72 M/mm3 (4.20-5.60)
--- NOTE | 2021-11-11 12:06 | NUR ---
Schedule medications given. Amiodarone held due to dialysis. Shift assessment preformed. VSS. Patient A&Ox3. Skin issues noted in shift assessment. Bumex gtt running as orderd. Dialysis catheter in place. Dressing is CDI. Patient denies any pain, discomfort SOA, or further needs at this time. Call light in reach. Fall precautions in place.
[2021-11-11 16:00] VITALS: BP 105/87; PULSE 95
[2021-11-11 20:50] VITALS: BP 107/52; PULSE 98; TEMP 98.2
--- NOTE | 2021-11-11 21:52 | NUR ---
Patient assessed around 1944. Alert and oriented. Denies pain and discomfort. Peripheral IV to left AC with Bumex drip running per orders. HD cath to right chest, dressing CDI. Denies SOB and dyspnea. LS CTA in upper lobes, diminished in lower. HRR. BSAx4. 3+ edema BLE, scaling, flaking. Dressing to left heel CDI. Dressing to bottom CDI. Indweling rhoades catheter with yellow urine with sediment. Voices no questions, needs, or concerns at this time. In bed with call light within reach.
[2021-11-12] VITALS (7 sets, daily range): BP systolic 88–104; BP diastolic 51–77; PULSE 69–97; TEMP 97.5–98.3
--- NOTE | 2021-11-12 06:06 | NUR ---
Continues on Bumex drip per orders. HOB elevated, as patient has SOB with laying down flat. Denies pain and discomfort. Indwelling rhoades catheter continues to drain cloudy, yellow urine with sediment present. In bed with call light within reach.
[2021-11-12 07:28] LABS: ALBUMIN 2.5 gm/dL (3.4-4.8); CALCIUM 8.6 mg/dL (8.4-10.2); CREATININE, serum 5.23 mg/dL (0.72-1.25); PHOSPHOROUS 5.2 mg/dL (2.3-4.7); POTASSIUM 4.4 mmol/L (3.5-4.5)
[2021-11-12 07:38] LABS: BASO % 0.2 % (0.0-2.0); EOS % 0.4 % (0.0-4.0); GRAN # 7.9 K/mm3 (1.4-6.5); GRAN % 82.1 % (42.2-75.2); LYMPH # 0.8 K/mm3 (1.2-3.4); LYMPH % 8.1 % (20.0-51.0); MEAN CELL VOLUME 101 fl (80.0-100.0); MEAN CORPUSCULAR HGB CONC 31 g/dl (33.0-37.0); MEAN PLATELET VOLUME 9.6 fl (7.4-10.4); MONO # 0.8 K/mm3 (0.1-0.6); PLATELET COUNT 381 K/mm3 (130-400); RED BLOOD COUNT 2.89 M/mm3 (4.20-5.60); REDCELL DISTRIBUTION WIDTH-CV 18.2 % (11.5-14.5)
[2021-11-12 07:43] LABS: HEMATOCRIT 29.1 % (42.0-52.0); HEMOGLOBIN 9.1 g/dl (13.5-18.0); MEAN CORPUSCULAR HEMOGLOBIN 31 pg (27-31)
--- NOTE | 2021-11-12 19:39 | NUR ---
Patient has had an ok day. VSS. Patient A&Ox3. Bumex gtt running as ordered. Pressure overlay placed on patient's bed. Liang catheter in place. Securment device in use, no kinks in tubing noted. Patient's wound on left foot redressed with gauze 4x4's and kerlex. Patient is currently resting in bed. Denies any pain, discomfort, SOA, or further needs at this time. Call light in reach. Fall precautions in place. at the bedside.
--- NOTE | 2021-11-12 23:01 | NUR ---
Patient assessed around 1954. Alert and oriented, and able to make needs known. Denies pain and discomfort. Peripheral INT to left AC with Bumex drip running per orders. Patietn voices no questions, needs, or concerns at this time. In bed with call light within reach. Bed alarm on.
[2021-11-13 00:28] VITALS: BP 92/45; PULSE 97; TEMP 97.8
[2021-11-13 04:35] VITALS: BP 97/45; PULSE 95; TEMP 98
--- NOTE | 2021-11-13 05:29 | NUR ---
Patient has denied pain and discomfort this shift. Did sit on side of bed this morning for about an hour. In bed with call light within reach. Bed alarm on.
[2021-11-13 07:05] LABS: ALBUMIN 2.5 gm/dL (3.4-4.8); CALCIUM 8.9 mg/dL (8.4-10.2); CREATININE, serum 4.69 mg/dL (0.72-1.25); PHOSPHOROUS 4.3 mg/dL (2.3-4.7); POTASSIUM 4.6 mmol/L (3.5-4.5)
[2021-11-13 07:16] VITALS: BP 146/75; PULSE 106; TEMP 97.8
[2021-11-13 07:26] LABS: MEAN CELL VOLUME 103 fl (80.0-100.0); MEAN CORPUSCULAR HGB CONC 31 g/dl (33.0-37.0); MEAN PLATELET VOLUME 9.7 fl (7.4-10.4); PLATELET COUNT 341 K/mm3 (130-400); RED BLOOD COUNT 2.75 M/mm3 (4.20-5.60); REDCELL DISTRIBUTION WIDTH-CV 18.6 % (11.5-14.5)
[2021-11-13 07:33] LABS: HEMATOCRIT 28.3 % (42.0-52.0); HEMOGLOBIN 8.7 g/dl (13.5-18.0); MEAN CORPUSCULAR HEMOGLOBIN 32 pg (27-31)
[2021-11-13 08:27] LABS: BAND 1 % (0-10); EOSINOPHIL 1 % (0-4); LYMPHOCYTE 7 % (20.0-51.0)
[2021-11-13 08:28] LABS: ANISOCYTOSIS 2+; HYPOCHROMIA 2+; NEUTROPHILS 83 % (42.0-75.2); PLATELET ESTIMATE NORMAL (NORMAL)
[2021-11-13 11:46] VITALS: BP 114/55; PULSE 98; TEMP 98
--- NOTE | 2021-11-13 12:41 | NUR ---
PT RESTING IN BED. MORNING MEDICATIONS GIVEN. SHIFT ASSESSMENT COMPLETED. LAIRD IS DRAINING WELL, DRAINAGE NOTED TO THE INSERTION SITE. PT BLE HAVE DRAINAGE AND LLE IS WRAPPED IN GUAZE DRESSING. BUMEX GTT INFUSING. CONTINUING TO MONITOR.
--- NOTE | 2021-11-13 15:48 | NUR ---
It Auditor spoke with Edwina at [facility] who advised they would only be able to consider patient if he can transfer with an assist of one. JIMMY spoke with TWYLA Shirley and provided this update. JIMMY also advised there was no answer from [facility] at this time. JIMMY faxed clinical updates to both [facility] and [facility].
[2021-11-13 15:57] VITALS: BP 122/57; PULSE 97; TEMP 97.5
[2021-11-13 18:53] LABS: HEPATITIS B SURFACE ANTIBODY <2.0 (())
[2021-11-13 19:36] LABS: COLLECTION METHOD IN
[2021-11-13 19:51] LABS: BUDDING YEAST Present (NOT PRESENT); MUCOUS Present (NOT PRESENT); PH 5 (5-8); SQUAMOUS EPITHELIAL None Seen /hpf (0-10); URINE APPEARANCE Hazy (CLEAR/HAZY); URINE BACTERIA Rare /hpf (NONE SEEN); URINE BLOOD 3+ (NEGATIVE); URINE COLOR Yellow (YELLOW); URINE GLUCOSE 3+ (NEGATIVE); URINE KETONE Negative (NEGATIVE); URINE NITRATE Negative (NEGATIVE); URINE PROTEIN(semi-quant) 1+ (NEGATIVE); URINE UROBILINOGEN Negative (NEGATIVE)
[2021-11-13 20:15] VITALS: BP 116/58; PULSE 99; TEMP 97.6
[2021-11-14 00:04] VITALS: BP 119/57; PULSE 86; TEMP 97.6
--- NOTE | 2021-11-14 03:03 | NUR ---
Pt alert and oriented, drowsy, sometimes forgetful. Pt denies pain at this time. IV bumex gtt discontinued per orders. HD catheter site on right chest is clean/dry/intact with no edema/drainage/redness. Pt tolerating PO. Enforcing mechanical soft diet and fluid restriction. Liang catheter in place. Urine is joni colored with sediment. Monitoring intake and output. Shift assessment performed. Medications administered per orders and education provided. VS stable. Afebrile. FSBS 283 this evening. 3+ BLE edema present and 3+ edema in the feet. BLE scaly/red/flaky/weeping. BLE elevated. There is a black, tennis ball sized wound on the pt's left heel, dressing applied. The pt also has a scabbed abrasion on the top of the right foot. 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 The pt also has a stage 2 pressure ulcer in the buttock folds. The scrotal area is reddened with pus noted and small wounds on the scrotum. Pt is on air mattress and is continuing to turn pt every 2 hours. Pt resting and does not report any questions at this time, will continue to monitor.
[2021-11-14 04:23] VITALS: BP 112/53; PULSE 90; TEMP 97.6
--- NOTE | 2021-11-14 05:10 | NUR ---
No adverse events overnight. Pt alert and oriented. Resting at this time. IV bumex d/c'd per orders. Pt tolerating PO. Continuing to monitor intake and output. Enforcing fluid restriction and mechanical soft diet. BLE still edematous and weeping. Continuing to turn frequently and provide incontinent care as needed. Dressing on left heel clean, dry, intact. Pt does not report any questions at this time, will continue to monitor.
[2021-11-14 06:55] LABS: MEAN CORPUSCULAR HGB CONC 34 g/dl (33.0-37.0); MEAN PLATELET VOLUME 9.5 fl (7.4-10.4); PLATELET COUNT 287 K/mm3 (130-400); RED BLOOD COUNT 2.34 M/mm3 (4.20-5.60); REDCELL DISTRIBUTION WIDTH-CV 22.3 % (11.5-14.5)
[2021-11-14 06:58] LABS: HEMATOCRIT 25.7 % (42.0-52.0); HEMOGLOBIN 8.8 g/dl (13.5-18.0); MEAN CELL VOLUME 110 fl (80.0-100.0); MEAN CORPUSCULAR HEMOGLOBIN 38 pg (27-31)
[2021-11-14 07:08] LABS: ALBUMIN 2.5 gm/dL (3.4-4.8); CALCIUM 9.4 mg/dL (8.4-10.2); CREATININE, serum 4.64 mg/dL (0.72-1.25); PHOSPHOROUS 4.1 mg/dL (2.3-4.7); POTASSIUM 4.6 mmol/L (3.5-4.5)
[2021-11-14 07:54] VITALS: BP 102/55; PULSE 92; TEMP 97.5
[2021-11-14 08:02] LABS: ANISOCYTOSIS 3+; BAND 4 % (0-10); EOSINOPHIL 1 % (0-4); LYMPHOCYTE 7 % (20.0-51.0); NEUTROPHILS 83 % (42.0-75.2); NUCLEATED RED BLOOD CELL 1 (0-6); PLATELET ESTIMATE NORMAL (NORMAL)
--- NOTE | 2021-11-14 09:20 | NUR ---
PT OFF UNIT FOR PROCEDURE AT THIS TIME.
--- NOTE | 2021-11-14 09:40 | NUR ---
PT SITTING UP IN BED FOR BREAKFAST THIS AM. MORNING MEDICATIONS GIVEN. SHIFT ASSESSMENT COMPLETED. PT CURRENTLY OFF UNIT FOR DIALYSIS TREATMENT. WILL CONTINUE TO MONITOR.
[2021-11-14 11:05] VITALS: BP 91/53; PULSE 94
--- NOTE | 2021-11-14 16:00 | NUR ---
Truck Greaser faxed clinical updates to [facility] and [facility]. Per therapy notes and RN report, patient needing more than one to assist for mobility. Patient has needed up to four people for transfer. SW attempted to contact [facility] and was not able to reach the graphics coordinator. JIMMY collaborated with TWYLA Gates who advised we may need to look at [facility] facilities. JIMMY faxed referrals to [facility] and [facility]. JIMMY met with patient's and provided update on referrals. , Nalini advised that patient transferred with one with OT earlier (however an aide overheard this and advised this was not accurate). Nalini advised her daughter in law, Violetta is working with [facility] to see if family can help assist with transfer at dialysis as that is the barrier at this time.
--- NOTE | 2021-11-14 16:16 | NUR ---
DRESSING CHANGED TO L HEEL. OIL GAUZE USED WITH NON ADHERENT PAD THEN WRAPPED IN GAUZE FLUFF. CONTINUING TO MONITOR.
[2021-11-14 16:21] VITALS: BP 84/46; PULSE 59; TEMP 97.4
[2021-11-14 20:22] VITALS: BP 98/59; PULSE 83; TEMP 97.5
--- NOTE | 2021-11-14 22:30 | NUR ---
Recieved a call from telemetry that the pt's HR kept dropping into the 30's and the bumping back up into the 80's where he has been running consistently. I assessed the pt, who was alert and oriented. Pt denied chest pain/SOB and was resting queitly. I notified the provider, Osiel Moon, of the pt's HR. The provider placed the following phone verbal order readback: 1. Draw a stat Digoxin level x1 now 2. Place an order for a daily renal function panel lab and daily CBC lab x5 days at 0500 staring 11/15/21 3. Stop the pt's current order of amiodarone PO 200 mg BID and d/c the order 4. Place a new medication order for amiodarone PO 200 mg once daily in the morning starting on 11/16/21 at 0900. 5. Continue to monitor the pt, but the provider is fine with the HR decreasing and increasing back up. I re-read the orders back to the provider and placed per provider orders. I also applied a new telemetry box and cords to the pt for a more accurate reading. Will continue to monitor.
[2021-11-15 00:02] VITALS: BP 103/55; PULSE 73; TEMP 98
--- NOTE | 2021-11-15 01:59 | NUR ---
Pt alert and oriented, droswy and feels "tired" this evening, but seems to be restless overnight. Pt is having difficulty getting comfortable this evening. Pt has been freuqently repositioned and turned but cannot seem to find comfort. Reports bottom pain. Prn tylenol administered for pain. Pt has been turned freuqently, but requested to sit up on the side of the bed. Pt is weak and unable to hold himself of for long periods, so I did not feel it was safe to let the pt sit on the side of the bed. We repositioned the pt again and moved the bed into the chair position. Pt appears to be more comfortable now and is resting. HD catheter site on right chest is clean/dry/intact. Liang catheter in place with joni colored urine. I&O monitored and fluid restriction enforced. VS stable. Afebrile. On room air. BP running softer, but stable. Pt's HR has now been running in the 70's-80's consistently. Pt was having drops into the 30's earlier this evening (see previous note), but it has remained stable. Heart rythym is in a-fib, but rate controlled. Pt has poor intake. Tolerating PO diet, but is refused snacks when encouraged. Pt's skin issues remain. Scrotal area remains reddenend with small wounds around the scrotal area. A pus-like drainage was noted around the genital area. Catheter care performed. Pt has a stage 2 ulcer on his bottom with drainage noted. Pt has been turned frequently and is on an air mattress to decrease pressure on the site. Barrier cream and incontinent care is also being performed frequently. BLE continued to have 3+ edema and are weeping. The BLE are red/swollen/hard/flaky. The pt has a wound on the left heel that is the size of a tennis ball and is black and soft. The heel currently has a wet-to-dry dressing applied and is elevated. Pt has a skin tear to the top of the right foot that is scabbed and a tear on the right ankle area that is red. pt also has scattered bruising on the BUE, as well as a skin tear on the left arm that is covered with a dressing. Pt appears to be weak and is unable to make many independent movements in bed without assistance. Pt does not report any questions at this time, will continue to monitor.
--- NOTE | 2021-11-15 03:42 | NUR ---
Recieved multiple calls from telemetry that the pt's tele monitor kept losing signal. I assessed the pt each time. Pt has remained alert and oriented. Pt's tele and tele stickers were also in place and hooked on correctly each time. I changed out all of the pt's telemetry stickers twice and also changed out the telemetry box and cords. Changing out the box helped initially, but now it continues to say "signal loss", despite the new stickers being on and intact and all of the tele leads in place. Will continue to monitor the pt's vital signs fruqently. Tele is aware. Will continue to monitor.
[2021-11-15 04:41] VITALS: BP 99/52; PULSE 84; TEMP 97.9
--- NOTE | 2021-11-15 06:02 | NUR ---
No adverse events overnight. Pt continued to find difficulty getting comfortable, despite frequently repositioning the pt. Pt was restless overnight and states being "miserable". Pt does not appear to get any relief from any position he is repositioned into. Often calls out stating that he needs the HOB lifted up more, though he knows/is able to utilize the buttons on the side of the bed to readjust his HOB. Tolerating PO. Liang catheter remains in place with poor output of 150 ml. Urine is joni colored with sedement. Tolerating PO. Pt does not report any questions at this time, will continue to monitor.
[2021-11-15 07:26] LABS: ALBUMIN 2.5 gm/dL (3.4-4.8); CALCIUM 9.4 mg/dL (8.4-10.2); CREATININE, serum 3.94 mg/dL (0.72-1.25); PHOSPHOROUS 3.2 mg/dL (2.3-4.7); POTASSIUM 4.4 mmol/L (3.5-4.5)
[2021-11-15 07:52] LABS: MEAN CORPUSCULAR HGB CONC 31 g/dl (33.0-37.0); MEAN PLATELET VOLUME 9.7 fl (7.4-10.4); PLATELET COUNT 276 K/mm3 (130-400); RED BLOOD COUNT 2.89 M/mm3 (4.20-5.60); REDCELL DISTRIBUTION WIDTH-CV 19.6 % (11.5-14.5)
[2021-11-15 07:59] LABS: HEMATOCRIT 30.4 % (42.0-52.0); HEMOGLOBIN 9.3 g/dl (13.5-18.0); MEAN CORPUSCULAR HEMOGLOBIN 32 pg (27-31)
[2021-11-15 08:00] LABS: MEAN CELL VOLUME 105 fl (80.0-100.0)
[2021-11-15 08:13] VITALS: BP 83/50; PULSE 90; TEMP 97.7
[2021-11-15 08:35] LABS: BAND 3 % (0-10); EOSINOPHIL 1 % (0-4); LYMPHOCYTE 12 % (20.0-51.0); NEUTROPHILS 76 % (42.0-75.2); NUCLEATED RED BLOOD CELL 10 (0-6); PLATELET ESTIMATE NORMAL (NORMAL)
[2021-11-15 08:36] LABS: ANISOCYTOSIS 2+
--- NOTE | 2021-11-15 10:11 | NUR ---
Follow-up visit; Nurse Companion gets little response from patient however Nurse Companion offers God's blessings to Brooks and wishes him well.
[2021-11-15 11:27] VITALS: BP 99/88; PULSE 106; TEMP 97.8
--- NOTE | 2021-11-15 14:54 | NUR ---
PATIENT ALERT BUT DROWSY. VSS. PATIENT DENIES PAIN. PATIENT IS INCONTINENT OF STOOL AND NOT ABLE TO REPORT INCONTINENCE TO PCT OR NURSE. BLE HAVE 3+ EDEMA, REDDENED, AND PAINFUL TO TOUCH PROXIMAL TO KNEE. BILAT FEET ARE SCABBED, CRUSTED, AND EDEMATOUS. PATIENT HAS LARGE HEALING WOUND ON TOP OF RIGHT FOOT. LEFT FOOT IS COVERED IN DRESSING. LEFT UPPER ARM HAS DRESSING OVER DECENT SIZED SKIN TEAR. STAGE 2 TO COCCYX ON LEFT GLUTEAL FOLD. IV TO LEFT AC FLUSHES WELL. LAIRD CATHETER TO DEPENDENT DRAINAGE. CALL LIGHT WITHIN REACH.
[2021-11-15 15:16] VITALS: BP 93/51; PULSE 94; TEMP 97.9
--- NOTE | 2021-11-15 16:09 | NUR ---
Dramatic Art Teacher spoke with TWYLA Shirley who advised Dr. Moon spoke with Dr. Phillip at [facility] and that [facility] will accept patient. Fern advised patient will get dialysis tomorrow, then be discharged. JIMMY followed up with Edwina at who advised the decision has been made to accept and requested updates. JIMMY faxed. Edwina advised that family will go to the dialysis clinic to help with transfers. JIMMY updated patient and patient's , Nalini and they are happy with this decision. JIMMY discussed transportation and Nalini advised they would need EMS transport. JIMMY advised this would be an out of pocket expense and Nalini was agreeable to that. JIMMY received a call from Edwina who advised she spoke with their DON and with their census and scheduled surgeries tomorrow, they may not be able to accept. Edwina advised the final decision will be made tomorrow morning. JIMMY updated Fern. JIMMY was approached by patient's , Nalini who advised Dr. Moon said that now there was no available chair time at the [facility]. IJMMY advised that [facility].
[2021-11-15 20:31] VITALS: BP 102/55; PULSE 93; TEMP 97.5
[2021-11-16 00:37] VITALS: BP 97/49; PULSE 86; TEMP 98.2
[2021-11-16 04:28] VITALS: BP 99/54; PULSE 89; TEMP 98.5
--- NOTE | 2021-11-16 04:38 | NUR ---
called to room by tech, reports pt is bleeding, has pulled out HD catheter. pt found with bright red blood coming from right upper chest, tech applying pressure. pt stated he "wanted it out" when asked why he pulled it out. catheter intact. sutures remain in chest. Dr Moon notified per phone, instructed to hold pressure and elevate HOB, hold Eliquis for today. pressure applied for 10mins, no longer bleeding. bedding and gown changed. pt remains anxious and confused, tries to get up out of bed without calling for help, reports SOA when lying flat, O2 sats on RA >92%, HOB kept elevated.
[2021-11-16 06:14] LABS: HEMOGLOBIN 8.7 g/dl (13.5-18.0)
[2021-11-16 06:28] LABS: ALBUMIN 2.5 gm/dL (3.4-4.8); CALCIUM 9.2 mg/dL (8.4-10.2); CREATININE, serum 4.5 mg/dL (0.72-1.25); PHOSPHOROUS 3.4 mg/dL (2.3-4.7); POTASSIUM 4.5 mmol/L (3.5-4.5)
--- NOTE | 2021-11-16 06:34 | NUR ---
pt on RA, no further bleeding from old HD cath site, dressing to left foot changed this shift, several bowel movements this shift, applied mepilex to open area on right gluteal fold, but came off with next incontinent episode, left open to air. frequent repositioning, pt yells out for help continuously wanting to get up, thinks he is in the doctor's office. reports SOA, but O2 sats on RA WNL, rhoades patent/secure. Dr Moon called last evening per Maira, weigh and charge worker nurse, after asked for anxiety medication for pt, Dr Moon would not order anything new, increased ambien to 10 mg @HS, pt slept after given up until 0200, has been awake and agitated since.
[2021-11-16 06:50] LABS: MEAN CORPUSCULAR HEMOGLOBIN 32 pg (27-31); RED BLOOD COUNT 2.72 M/mm3 (4.20-5.60)
[2021-11-16 06:51] LABS: HEMATOCRIT 28.9 % (42.0-52.0); MEAN CELL VOLUME 106 fl (80.0-100.0); MEAN CORPUSCULAR HGB CONC 30 g/dl (33.0-37.0); REDCELL DISTRIBUTION WIDTH-CV 19.9 % (11.5-14.5)
[2021-11-16 06:52] LABS: MEAN PLATELET VOLUME 9.9 fl (7.4-10.4); PLATELET COUNT 277 K/mm3 (130-400)
[2021-11-16 07:35] LABS: EOSINOPHIL 1 % (0-4); LYMPHOCYTE 10 % (20.0-51.0); METAMYELOCYTE 1 % (0-0); NEUTROPHILS 83 % (42.0-75.2); NUCLEATED RED BLOOD CELL 1 (0-6)
[2021-11-16 07:36] LABS: PLATELET ESTIMATE NORMAL (NORMAL); SPHEROCYTE 1+
[2021-11-16 07:37] LABS: ANISOCYTOSIS 2+; POLYCHROMASIA 1+
--- NOTE | 2021-11-16 09:00 | NUR ---
PATIENT TAKEN TO MRI VIA STRETCHER AT THIS TIME IN STABLE CONDITION.
--- NOTE | 2021-11-16 09:30 | NUR ---
PATIENT RETURNED FROM MRI IN STABLE CONDITION. BREAKFAST AT PATIENT BEDSIDE, BLOOD SUGAR CHECKED BEFORE MEAL, RESULT 64. PATIENT STATES HE IS SLIGHTLY DIZZY AT THIS TIME. PATIENT GIVEN ORANGE JUICE TO DRINK AND EATING MEAL, WILL CONTINUE TO MONITOR FOR SYMPTOMS OF HYPOGLYCEMIA.
--- NOTE | 2021-11-16 10:38 | NUR ---
Roller Setter spoke with Edwina at [facility] who advised that due to their census and staffing, they will not be able to take patient until possibly Saturday. JIMMY updated Fern who advised patient pulled out his dialysis catheter. Fern inquired about [facility] and JIMMY advised [facility] declined as they do not have a bed for patient. Palliative consult placed. Sandra Palliative RN met with patient and patient's and they are considering going to [facility] with [facility]. SW contacted [facility] and left a detailed message for Naila, campus coordinator. JIMMY also contacted [facility] and faxed referral.
--- NOTE | 2021-11-16 10:42 | NUR ---
Was told about consult by Fern nephrology TONJA. Talked with patient's at bedside about goals of care and what hospice would look like if they decide not to pursue dialysis. agreeable to checking bed availability at [facility] with [facility]. She stated that she and the patient will talk and get us a decision tomorrow morning at the latest. Patient slept throughout our conversation.
[2021-11-16 12:00] VITALS: BP 103/57; PULSE 85; TEMP 98.3
--- NOTE | 2021-11-16 15:00 | NUR ---
PATIENT DOING WELL THIS SHIFT. NO COMPLAINTS AT THIS TIME. AT BEDSIDE. FAMILY HAS DECIDED TO CONTINUE AGGRESSIVE TREATMENT VS PALLIATIVE CARE AT THIS TIME. STATES SHE WAS WAITING ON LEFT FOOT MRI RESULTS TO MAKE DECISION. CONSENT FORM FOR DIALYSIS CATH PLACEMENT SIGNED, PLAN TO BE PLACED AT 1130 TOMORROW MORNING, NPO AT MIDNIGHT. SWELLING IN LOWER EXT HAS DECREASED OVER TIME OF ADMISSION WITH DIALYSIS TREATMENTS. PATIENT HAS TOLERATED DIALYSIS WELL. LEFT HEEL ULCER DRESSING CHANGES DONE DAILY ORDERED. NO SIGNS OF INFECTION HERE. PATIENT HAS MULTIPLE OTHER WOUNDS ON BILATERAL LEGS AND BUTTOCKS AREA. PRESSURE REDUCTION METHODS ARE IN PLACE. INCONTINENT OF BOWEL, LAIRD CATHETER IN PLACE WITH DARK JOSE R URINE IN BAG. PATIENT IS BEDFAST AND UNABLE TO AMBULATE AT THIS TIME. A&0 X3, PLEASANT. PATIENT TO TRANSITION TO [facility] SATURDAY.
[2021-11-16 16:00] VITALS: BP 102/67; PULSE 72; TEMP 98.3
--- NOTE | 2021-11-16 16:33 | NUR ---
Stepped in to check on patient. and daughter at bedside. informed me that they plan to pursue dialysis and will have the HD cath replaced tomorrow at 11:30. Primary nurse confirmed and a consent has been signed. Will notify SW as well.
[2021-11-16 20:35] VITALS: BP 103/61; PULSE 92; TEMP 97.6
--- NOTE | 2021-11-16 22:48 | NUR ---
Pt alert and oriented, but forgetful. Appears drowsy/tired this evening. Currently laying on his right side, continuing to freuqently reposition the pt. Pt does not report pain at this time. Pt pulled out HD catheter in right chest last night. Site is currently clean/dry with a stitch in place. No redness/edema/drainage noted. Shift assessment performed. Medications administered per orders and education provided. VS stable. BP runs softer, but stable. Heart rythym in a-fib, but rate controlled. Pt runs bradycardic in 50's overnight. On 2L at night, satting WNL. Skin issues remain. Pt's BLE have 3+ edema and 3+ edema in the feet. BLE are red/edematous/scaling/weeping. There is a black wound on the pt's left heel. I applied a new wet to dry dressing this evening to the site. The pt also has a scabbed tear on the right foot and a skin tear on the side of the right ankle. Pt's scrotum is reddened and has small wounds on it with drainage. Noted a stage 2 ulcer on the pt's right buttock fold. Applied mepelex to site. Skin tear noted on the left arm/elbow that is small and covered. Pt's skin is red/dry/thin. Continuing to provide incontinent care and turn pt frequently. Liang catheter in place. Catheter care provided. Urine in joni colored with sedement. Pt tolerating PO, takes medications with pudding. FSBS 295 this evening. Pt will be NPO 0000 for HD catheter plcmt tomorrow. Pt resting and does not report any questions at this time, will continue to monitor.
[2021-11-17 00:24] VITALS: BP 101/53; PULSE 81; TEMP 97.3
[2021-11-17 04:25] VITALS: BP 93/54; PULSE 78; TEMP 97.3
--- NOTE | 2021-11-17 05:19 | NUR ---
No adverse events overnight. Pt resting. Denies pain at this time. Re-dressed left heel wound x2. Continuing to reposition frequently and provide incontinent care. Liang catheter in place. Natasha urine, poor output. Sedement noted in urine. Elevated BLE. Pt NPO since 0000. VS stable. Pt does not report any questions at this time, will continue to monitor.
[2021-11-17 06:19] LABS: MEAN CELL VOLUME 109 fl (80.0-100.0); MEAN CORPUSCULAR HGB CONC 32 g/dl (33.0-37.0); MEAN PLATELET VOLUME 9.9 fl (7.4-10.4); PLATELET COUNT 241 K/mm3 (130-400); RED BLOOD COUNT 2.41 M/mm3 (4.20-5.60); REDCELL DISTRIBUTION WIDTH-CV 21.5 % (11.5-14.5)
[2021-11-17 06:24] LABS: INR 1.6 (0.8-3.0); PROTHROMBIN TIME 18.4 SECONDS (9.7-12.8)
[2021-11-17 06:28] LABS: HEMATOCRIT 26.3 % (42.0-52.0); HEMOGLOBIN 8.3 g/dl (13.5-18.0); MEAN CORPUSCULAR HEMOGLOBIN 34 pg (27-31)
[2021-11-17 06:34] LABS: ALBUMIN 2.4 gm/dL (3.4-4.8); CALCIUM 9.2 mg/dL (8.4-10.2); CREATININE, serum 4.76 mg/dL (0.72-1.25); PHOSPHOROUS 4.2 mg/dL (2.3-4.7); POTASSIUM 4.9 mmol/L (3.5-4.5)
[2021-11-17 07:09] VITALS: BP 88/55; PULSE 78; TEMP 97.9
[2021-11-17 07:09] LABS: BAND 2 % (0-10); EOSINOPHIL 2 % (0-4); LYMPHOCYTE 9 % (20.0-51.0); NEUTROPHILS 82 % (42.0-75.2)
[2021-11-17 07:12] LABS: STOMATOCYTE 2+
[2021-11-17 07:13] LABS: ANISOCYTOSIS 3+; HYPOCHROMIA 2+
[2021-11-17 07:17] LABS: PLATELET ESTIMATE NORMAL (NORMAL); POLYCHROMASIA 1+
[2021-11-17 07:18] LABS: MICROCYTOSIS 1+
--- NOTE | 2021-11-17 11:15 | NUR ---
Talked with at bedside. She states that the patient was very alert and interactive yesterday and was very clear he wanted to continue dialysis and that he wasn't ready to yet. Also clarified that the patient has not been given a chair time for dialysis and that any facility acceptance is pending that. verbalized understanding and is hopeful something close to home can be arranged. SW aware of conversation as well.
--- NOTE | 2021-11-17 11:30 | NUR ---
PATIENT AND FAMILY HAVE DECIDED TO TRANSITION TO COMFORT CARE AT THIS TIME. DR CHA AT BEDSIDE HAVING DISCUSSION WITH FAMILY. WILL AWAIT FURTHER ORDERS.
[2021-11-17 12:00] VITALS: BP 102/58; PULSE 82; TEMP 97.9
--- NOTE | 2021-11-17 13:51 | NUR ---
RA SPO2 85% ASLEEP. PLACED ON 2 LPM NC 90% RN NOTIFIED
--- NOTE | 2021-11-17 15:04 | NUR ---
rider ticket worker spoke with Fern seperately and then with Dr Moon to discuss discharge plan. Prior to family making the final decision to transfer to Hospice care, patient's plan, per Dr Moon, was to transfer to [facility] and receive dialysis. Worker spoke with Charge nurse at the [facility] and her concerns were that they have low staffing and bed openings are a concern. Worker spoke with both Dr Moon and Fern about alternate plan if [facility] cannot accept and if a dialysis chair time was not established on Saturday the . Patient's plan as of now is to transfer to a nursing facility near [place] for halfway care with Hospice.
--- NOTE | 2021-11-17 15:15 | NUR ---
Discharge plan for patient is now to discharge on hospice to a long-term. JIMMY contacted [facility] to provide update. JIMMY also contacted [facility] and faxed updates. The soonest they can consider admit is Saturday. JIMMY updated , Nalini who advised [facility] is their first preference. Patient's advised if [facility] cannot take Saturday, they would then consider [facility] in [place].
[2021-11-17 19:38] VITALS: BP 106/57; PULSE 80; TEMP 97.5
--- NOTE | 2021-11-18 05:30 | NUR ---
ASSESSMENT COMPLETE FOR YOUTH OFFICER. PT VERY UNCOMFORTABLE IN BED, AID AND I SPEND A SUBSTANTIAL AMOUNT OF TIME REPOSITIONING HIM MOST OF SHIFT. PT ALSO UP ALMOST THE ENTIRE NIGHT. PT COMPLAINED OF SLEEPLESSNESS AND PAIN. PT GIVEN AMBIEN AND HALF A PERCOCET. NEITHER MEDICATION HAS WORKED FOR PT TONIGHT. PT REALLY NEEDS SOMETHING STRONGER IF POSSIBLE. WILL CONTINUE TO MONITOR. CALL LIGHT WITHIN REACH.
[2021-11-18 06:17] LABS: MEAN CELL VOLUME 108 fl (80.0-100.0); MEAN CORPUSCULAR HGB CONC 31 g/dl (33.0-37.0); MEAN PLATELET VOLUME 10.2 fl (7.4-10.4); PLATELET COUNT 236 K/mm3 (130-400); RED BLOOD COUNT 2.28 M/mm3 (4.20-5.60); REDCELL DISTRIBUTION WIDTH-CV 20.3 % (11.5-14.5)
[2021-11-18 06:28] LABS: HEMATOCRIT 24.7 % (42.0-52.0); HEMOGLOBIN 7.6 g/dl (13.5-18.0); MEAN CORPUSCULAR HEMOGLOBIN 33 pg (27-31)
[2021-11-18 06:35] LABS: ALBUMIN 2.3 gm/dL (3.4-4.8); CALCIUM 8.8 mg/dL (8.4-10.2); CREATININE, serum 4.96 mg/dL (0.72-1.25); PHOSPHOROUS 4.1 mg/dL (2.3-4.7)
[2021-11-18 06:41] LABS: BAND 1 % (0-10); EOSINOPHIL 3 % (0-4); LYMPHOCYTE 11 % (20.0-51.0); MYELOCYTE 3 % (0-0); NEUTROPHILS 74 % (42.0-75.2); NUCLEATED RED BLOOD CELL 1 (0-6)
[2021-11-18 06:43] LABS: ANISOCYTOSIS 2+; HYPOCHROMIA 1+; PLATELET ESTIMATE NORMAL (NORMAL)
--- NOTE | 2021-11-18 09:33 | NUR ---
Patient is resting in bed, very tired after a bad sleeping night. at the bedside, asked for retaining his medications and let him sleep more. Telemetry in place AFIB HR WNL. 1l O2 NC. Assessment completed, no other needs at this time. Continue monitoring
--- NOTE | 2021-11-18 15:38 | NUR ---
Patient and states he can not sleep Haloperidol provided, continue monitoring in 2 hrs.
[2021-11-18] MEDS ORDERED: PREMARIN 0.60.625 M1 PO (17:26)
--- NOTE | 2021-11-18 18:22 | NUR ---
Patient has not been able to rest, is at the bedside. Patient has eaten poorly. Multiple repositioning done. Continues with comfort cares. Report will be given to night RN.
--- NOTE | 2021-11-19 06:00 | NUR ---
ASSESSMENT FOR SURGICAL ASSISTANT COMPLETE. PT IN BED CALLING OUT FOR A "SHOT." PT GIVEN ROXANOL AND ATIVAN. PT REPOSITIONED UPON REQUEST. ROXANOL AND ATIVAN WORKED FOR A COUPLE OF HOURS. PT REALLY WANTS A GOOD NIGHT'S SLEEP. PT'S PAIN IS MANAGEABLE, WITH ROXANOL AND THE ATIVAN HELPS TO CALM PT, BUT NEITHER ARE VERY EFFECTIVE IN HELPING PT SLEEP THE WHOLE NIGHT. CALL LIGHT WITHIN REACH.
[2021-11-19 06:51] LABS: ALBUMIN 2.5 gm/dL (3.4-4.8); CREATININE, serum 5.31 mg/dL (0.72-1.25); PHOSPHOROUS 4.6 mg/dL (2.3-4.7); POTASSIUM 5.7 mmol/L (3.5-4.5)
[2021-11-19 07:12] LABS: MEAN CELL VOLUME 107 fl (80.0-100.0); MEAN CORPUSCULAR HGB CONC 30 g/dl (33.0-37.0); MEAN PLATELET VOLUME 9.8 fl (7.4-10.4); PLATELET COUNT 256 K/mm3 (130-400); RED BLOOD COUNT 2.54 M/mm3 (4.20-5.60); REDCELL DISTRIBUTION WIDTH-CV 20.1 % (11.5-14.5)
[2021-11-19 07:23] LABS: HEMATOCRIT 27.2 % (42.0-52.0); HEMOGLOBIN 8.2 g/dl (13.5-18.0); MEAN CORPUSCULAR HEMOGLOBIN 32 pg (27-31)
[2021-11-19 07:54] LABS: ANISOCYTOSIS 2+; BAND 2 % (0-10); EOSINOPHIL 1 % (0-4); HYPOCHROMIA 2+; LYMPHOCYTE 8 % (20.0-51.0); NEUTROPHILS 83 % (42.0-75.2); PLATELET ESTIMATE NORMAL (NORMAL)
--- NOTE | 2021-11-19 08:00 | NUR ---
Patient repositioned on LF side and HOB elevated. Patient requesting to sit up on the edge of the bed, nursing staff informing the patient that he is not safe sitting on the edge of th bed. Alert to self, and confused. IV CDI. VSS. Liang intact. Feet elevated on pillow. Air mattress in place. Call light within reach. Bed alarm on
--- NOTE | 2021-11-19 10:22 | NUR ---
moved the patient to the edge of the bed, nursing staff informed the that the patient is not safe on the edge of the bed. refusing, states "hes going to sit up for a while" Call light within reach
--- NOTE | 2021-11-19 13:12 | NUR ---
This nurse responded to bed alarm going off. is at bedside and has patient sitting on side of bed. States "I learned yesterday how to turn off the bed alarm but you got here to fast." Discussed having patient sit on side of the bed and increased fall risk but spouse continues to allow. As this nurse was leaving bed alarm going off again and turns off alarm on bed. Reported off to AARON Morgan who is aware of the situation.
--- NOTE | 2021-11-19 18:24 | NUR ---
Patient repositioned on the left side, left to go home. She was at the bedside most of the shift. Patient is resting. VSS. IV CDI. Liang intact. Call light within reach
--- NOTE | 2021-11-20 03:30 | NUR ---
ASSESSMENT COMPLETE FOR ENVIRONMENTAL SYSTEMS COORDINATOR. PT RESTING QUIETLY IN BED. PT HAS SLEPT ALL NIGHT THUS FAR. PT'S RESPIRATORY RATE HAS BEEN BETWEEN 12 TO 16 BPM. WILL CONTINUE TO MONITOR OFTEN. CALL LIGHT WITHIN REACH.
--- NOTE | 2021-11-20 08:00 | NUR ---
Patient resting in bed, alert to name, then falls back to bed. IV CDI. Denies pain and states that he is comfortable. Comfort care in place. Call light within reach
--- NOTE | 2021-11-20 16:34 | NUR ---
Hospice referrals have been sent to [facility], [facility], [facility], and [facility]. Family first preference is [facility]. Radha at [facility] advised they have no hospice beds. [facility] cannot take a new admission until Saturday/. Arthur at [facility] advised they can likely accept, however when he contacted patient's , Nalini she advised she wants patient close to home and that [facility] can accept. JIMMY followed up with Naila at [facility] who confirmed this. They can accept tomorrow with hospice. JIMMY contacted Bill at [facility] who advised they will admit tomorrow. JIMMY contacted [facility] and they cannot transport tomorrow. JIMMY contacted [facility] who can do the transport but advised patient may incur an out of pocket cost. JIMMY met with who is agreeable to pay out of pocket for EMS transport. Discharge Plan: [facility] tomorrow with [facility]
--- NOTE | 2021-11-20 17:45 | NUR ---
Nurses at the bedside to visit with the . Nurses assessed the patient, listen for HR for over a minute and did not hear an audible heart beat. Dr. Moon notified, Tony Roberson notified and isaak Bragg notified. at the bedside, nurses informed the that she can stay at the bedside until she is ready to leave. verbalized an understanding
--- NOTE | 2021-11-20 18:31 | NUR ---
Call from Nurse; Brooks passed. Car Racer called to be with patient's Nalini. Car Racer listened and provided Spiritual Care. When their son and his arrived, Car Racer offered personal prayer and "The Lord's Prayer" at Brooks's bedside for him, and his family. Family thanked Car Racer for her presence and ministry.
--- NOTE | 2021-11-20 18:35 | NUR ---
Called to the floor that patient had at 1745. in room with patient. Visited with patient's . chosen [facility]. [facility] called by this nurse at 1815. Confirmation number [id number]. Patient is not a candidate for donation due to age. Call placed to [facility] at 1822. Then will be here within [address] Prater's office called to make aware of patient. awaiting call back. Tony Roberson here with patient and family
--- NOTE | 2021-11-20 19:04 | NUR ---
home here to hot die picker the patient. Nursing staff in the room getting the patient cleaned
--- NOTE | 2021-11-20 19:09 | NUR ---
Patient taken to the home. Personal belongings with the patient
== END 2021-11-20 19:09 | disposition expired | DRG 674 ==
LOC: MEDICAL 12:32
PROVIDERS: Registered Nurse; ADMIT Internal Medicine Nephrology
PROC: 0JH63XZ Insertion of Tunneled Vascular Access Device into Chest Subcutaneous Tissue and Fascia, Percutaneous Approach (ICD-10-PCS; principal; 2021-11-10)
PROC: 02H633Z Insertion of Infusion Device into Right Atrium, Percutaneous Approach (ICD-10-PCS; 2021-11-10)
PROC: B5181ZA Fluoroscopy of Superior Vena Cava using Low Osmolar Contrast, Guidance (ICD-10-PCS; 2021-11-10)
PROC: 5A1D70Z Performance of Urinary Filtration, Intermittent, Less than 6 Hours Per Day (ICD-10-PCS; 2021-11-11)
DX: N17.9 Acute kidney failure, unspecified (principal); I48.20 Chronic atrial fibrillation, unspecified; I31.3 Pericardial effusion (noninflammatory); D64.9 Anemia, unspecified; N18.4 Chronic kidney disease, stage 4 (severe); Z51.5 Encounter for palliative care; Z66 Do not resuscitate; E78.1 Pure hyperglyceridemia; E11.51 Type 2 diabetes mellitus with diabetic peripheral angiopathy without gangrene; M10.9 Gout, unspecified; I12.9 Hypertensive chronic kidney disease with stage 1 through stage 4 chronic kidney disease, or unspecified chronic kidney disease; E11.22 Type 2 diabetes mellitus with diabetic chronic kidney disease; E66.9 Obesity, unspecified; N40.0 Benign prostatic hyperplasia without lower urinary tract symptoms; I95.9 Hypotension, unspecified; E87.70 Fluid overload, unspecified; D63.1 Anemia in chronic kidney disease; I87.8 Other specified disorders of veins; E83.39 Other disorders of phosphorus metabolism; S31.819A Unspecified open wound of right buttock, initial encounter; E03.9 Hypothyroidism, unspecified; D72.829 Elevated white blood cell count, unspecified; Z79.4 Long term (current) use of insulin; Z79.01 Long term (current) use of anticoagulants; Z87.442 Personal history of urinary calculi; Z88.8 Allergy status to other drugs, medicaments and biological substances; Z87.891 Personal history of nicotine dependence; Z23 Encounter for immunization; Z68.39 Body mass index [BMI] 39.0-39.9, adult
CPT/HCPCS: J0690; J1200; J1630; J1644; J1756; J1815; J2060; J2270; J7030; Q5105